=== PATIENT | female | born 1960 | race Two or more races ===

== ENCOUNTER 2020-04-01 08:28 | Outpatient (REF) | payer OTHER, SELFPAY ==
[2020-04-01 09:00] LABS: Basophils Percent Auto 0.2 % (0-2); Eosinophils Absolute Auto 0.1 X10*3/uL (0.0-0.4); Eosinophils Percent Auto 2.3 % (0-4); Hematocrit 38.3 % (37-47); Hemoglobin 12.5 g/dl (12.0-16.0); Imm Gran Abs Auto 0.01 X10*3/uL (0.00-0.03); Imm Gran Pct Auto 0.2 % (0.0-0.4); Lymphocytes Absolute Auto 2.1 X10*3/uL (1.2-4.9); Lymphocytes Percent Auto 39.2 % (20-40); MANUAL DIFF FLAG NO; Mean Corpuscular HGB Conc 32.6 g/dl (31.0-35.0); Mean Corpuscular Hemoglobin 29.8 pg (27.0-33.0); Mean Corpuscular Volume 91.4 fL (80-98); Monocytes Absolute Auto 0.3 X10*3/uL (0.1-1.2); Monocytes Percent Auto 6.4 % (2-11); Neutrophils Absolute Auto 2.8 X10*3/uL (2.0-8.3); Neutrophils Percent Auto 51.7 % (45-73); Platelet Count 240 X10*3/uL (160-400); Red Blood Count 4.19 X10*6/uL (4.20-5.50); Red Cell Distribution Width 12.2 % (11.0-16.0); White Blood Count 5.3 X10*3/uL (4.8-10.8)
[2020-04-01 09:30] LABS: Anion Gap 13 (12-20); Blood Urea Nitrogen 11 mg/dL (9-16); Calcium 9.1 mg/dL (8.4-10.2); Carbon Dioxide 26 mmol/L (22-29); Chloride 106 mmol/L (96-108); Cholesterol 164 mg/dL; Estimated Glomerular Filt Rate > 60; Glucose Fasting 101 mg/dL (60-99); HDL Cholesterol 54 mg/dL; LDL Cholesterol Calculated 92 mg/dl; Potassium 4.1 mmol/l (3.3-5.1); Sodium 141 mmol/L (135-145); Triglycerides 91 mg/dL
[2020-04-01 09:53] LABS: Thyroid Stimulating Hormone 3.11 mIU/mL (0.32-4.0)
== END 2020-04-01 08:29 | disposition home or self-care (01) ==
LOC: HO.LAB 08:28
PROVIDERS: Visit Provider Internal Medicine
DX: M81.0 Age-related osteoporosis without current pathological fracture (principal)
CPT/HCPCS: 36415; 80048; 80061; 84443; 85025

== ENCOUNTER 2020-04-04 08:12 | Outpatient (REF) | payer OTHER, SELFPAY ==
--- NOTE | 2020-04-04 08:15 | MM_ITS ---
EXAMINATION: MM SCREENING DIGITAL BREAST TOMOSYNTHESIS, BILATERAL CLINICAL INFORMATION: Screening. Asymptomatic. The lifetime risk of breast cancer based on the Tyrer-Cuzick Model is 4%. COMPARISON: Mammography: 04/03/2019; outside mammography 01/28/2018, 01/14/2017 ([facility]). TECHNIQUE: Digital breast tomosynthesis is performed in both the craniocaudal and mediolateral oblique views along with computer-aided detection (CAD). Synthesized 2D images are generated from the tomosynthesis. FINDINGS: There are scattered areas of fibroglandular density (ACR BI-RADS breast composition Category b). There are no significant masses, abnormal calcifications, or other abnormalities. Parenchymal pattern is similar to prior exams. MM/MM tomosynthesis screening BI IMPRESSION: No mammographic evidence of malignancy. ASSESSMENT: BI-RADS 1: Negative RECOMMENDATION: Routine annual mammography screening. This patient's information was entered into a reminder system with a target due date for their next mammogram.
== END 2020-04-04 08:13 | disposition home or self-care (01) ==
LOC: HO.MAMMO 08:12
PROVIDERS: PCP Internal Medicine; Visit Provider Internal Medicine
DX: Z12.31 Encounter for screening mammogram for malignant neoplasm of breast (principal)
CPT/HCPCS: 77063; 77067

== ENCOUNTER 2020-05-03 14:36 | Outpatient (REF) | payer OTHER, SELFPAY ==
[2020-05-04 03:37] LABS: CT PCR NOT DETECTED (Not Detect.); NG PCR NOT DETECTED (Not Detect.)
[2020-05-04 09:45] LABS: BV Int Neg Control Negative (Negative); BV Int Pos Control Positive (Positive)
== END 2020-05-03 14:37 | disposition home or self-care (01) ==
LOC: HO.LAB 14:36
PROVIDERS: Visit Provider Obstetrics & Gynecology
DX: Z01.419 Encounter for gynecological examination (general) (routine) without abnormal findings (principal); Z11.3 Encounter for screening for infections with a predominantly sexual mode of transmission
CPT/HCPCS: 87480; 87491; 87510; 87591; 87660

== ENCOUNTER 2020-05-18 14:18 | Outpatient (REF) | payer OTHER, SELFPAY | END 2020-05-18 14:19 | disposition home or self-care (01) | LOC: HO.LAB 14:18 | PROVIDERS: Visit Provider Obstetrics & Gynecology | DX: L91.8 Other hypertrophic disorders of the skin (principal) | CPT/HCPCS: 11200; 88304 ==

== ENCOUNTER → 2020-06-07 14:44 | Outpatient (BNVA) | payer OTHER, SELFPAY | PROVIDERS: PCP Internal Medicine; Visit Provider Nurse Practitioner Family | DX: Z76.89 Persons encountering health services in other specified circumstances (principal) ==

== ENCOUNTER 2020-06-08 09:18 | Outpatient (REF) | payer OTHER, SELFPAY ==
[2020-06-13 14:08] LABS: Vitamin D 25-OH, D2 <4 ng/mL; Vitamin D 25-OH, D3 18 ng/mL; Vitamin D 25-OH, Total 18 ng/mL (30-100)
== END 2020-06-08 09:19 | disposition home or self-care (01) ==
LOC: HO.LAB 09:18
PROVIDERS: PCP Internal Medicine; Visit Provider Nurse Practitioner Family
DX: M81.0 Age-related osteoporosis without current pathological fracture (principal); T45.8X5A Adverse effect of other primarily systemic and hematological agents, initial encounter
CPT/HCPCS: 82306

== ENCOUNTER → 2020-07-27 15:00 | Outpatient (BNVA) | payer OTHER, SELFPAY | PROVIDERS: PCP Internal Medicine; Visit Provider Nurse Practitioner Family ==

== ENCOUNTER → 2020-09-07 14:59 | Outpatient (BNVA) | payer OTHER, SELFPAY | PROVIDERS: PCP Internal Medicine; Visit Provider Nurse Practitioner Family ==

== ENCOUNTER 2020-09-16 17:17 | Outpatient (REF) | payer OTHER, SELFPAY ==
[2020-09-16 18:22] LABS: Hematocrit 39.9 % (37-47); Mean Corpuscular HGB Conc 32.6 g/dl (31.0-35.0); Mean Corpuscular Hemoglobin 29.5 pg (27.0-33.0); Mean Corpuscular Volume 90.7 fL (80-98); Mean Platelet Volume 11.5 fL (9.4-12.3); Platelet Count 270 X10*3/uL (160-400); Red Cell Distribution Width 12.3 % (11.0-16.0); White Blood Count 6.9 X10*3/uL (4.8-10.8)
[2020-09-16 18:42] LABS: Alanine Aminotransferase 20 U/L (0-31); Albumin Level 4.7 g/dL (3.5-5.0); Alkaline Phosphatase 105 U/L (39-117); Anion Gap 14 (12-20); Aspartate Amino Transferase 17 U/L (5-31); Bilirubin Total 0.2 mg/dL (0.0-1.0); Blood Urea Nitrogen 18 mg/dL (9-16); Calcium 9.8 mg/dL (8.4-10.2); Carbon Dioxide 29 mmol/L (22-29); Chloride 103 mmol/L (96-108); Estimated Glomerular Filt Rate 53; Glucose Random 135 mg/dL (60-115); Potassium 3.9 mmol/L (3.3-5.1); Sodium 142 mmol/L (135-145)
[2020-09-21 13:11] LABS: Vitamin D 25-OH, D2 <4 ng/mL; Vitamin D 25-OH, D3 67 ng/mL; Vitamin D 25-OH, Total 67 ng/mL (30-100)
== END 2020-09-16 17:18 | disposition home or self-care (01) ==
LOC: HO.LAB 17:17
PROVIDERS: PCP Internal Medicine; Visit Provider Nurse Practitioner Family
DX: K21.9 Gastro-esophageal reflux disease without esophagitis (principal); E55.9 Vitamin D deficiency, unspecified
CPT/HCPCS: 36415; 80053; 82306; 85027

== ENCOUNTER 2021-05-01 08:22 | Outpatient (REF) | payer OTHER, SELFPAY ==
[2021-05-01 10:04] LABS: Cholesterol 164 mg/dL; HDL Cholesterol 54 mg/dL; LDL Cholesterol Calculated 98 mg/dl; Triglycerides 64 mg/dL
[2021-05-05 14:06] LABS: Vitamin D 25-OH, D2 <4 ng/mL; Vitamin D 25-OH, D3 28 ng/mL; Vitamin D 25-OH, Total 28 ng/mL (30-100)
== END 2021-05-01 08:23 | disposition home or self-care (01) ==
LOC: HO.LAB 08:22
PROVIDERS: PCP Internal Medicine; Visit Provider Internal Medicine
DX: Z00.00 Encounter for general adult medical examination without abnormal findings (principal); M81.0 Age-related osteoporosis without current pathological fracture
CPT/HCPCS: 36415; 80061; 82306

== ENCOUNTER 2021-05-08 14:55 | Outpatient (REF) | payer OTHER, SELFPAY ==
[2021-05-09 03:00] LABS: CT PCR NOT DETECTED (Not Detect.); NG PCR NOT DETECTED (Not Detect.)
[2021-05-09 09:40] LABS: BV Int Neg Control Negative (Negative); BV Int Pos Control Positive (Positive)
[2021-05-11 16:31] LABS: HPV mRNA E6/E7 rflx Not Detected (Not Detected)
== END 2021-05-08 14:56 | disposition home or self-care (01) ==
LOC: HO.LAB 14:55
PROVIDERS: Visit Provider Advanced Practice Midwife
DX: Z01.419 Encounter for gynecological examination (general) (routine) without abnormal findings (principal); Z11.51 Encounter for screening for human papillomavirus (HPV); Z20.2 Contact with and (suspected) exposure to infections with a predominantly sexual mode of transmission
CPT/HCPCS: 87480; 87491; 87510; 87591; 87624; 87660; 88142

== ENCOUNTER 2021-06-08 12:16 | Outpatient (REF) | payer OTHER, SELFPAY ==
--- NOTE | ~2021-06-08 | MM_ITS ---
EXAMINATION: MM SCREENING DIGITAL BREAST TOMOSYNTHESIS, BILATERAL CLINICAL INFORMATION: Screening. Asymptomatic. The lifetime risk of breast cancer based on the Tyrer-Cuzick Model is 4%. COMPARISON: Mammography: 04/04/2020, 04/03/2019, 01/28/2018 TECHNIQUE: Digital breast tomosynthesis is performed in both the craniocaudal and mediolateral oblique views along with computer-aided detection (CAD). Synthesized 2D images are generated from the tomosynthesis. FINDINGS: There are scattered areas of fibroglandular density (ACR BI-RADS breast composition Category b). There are no significant masses, abnormal calcifications, or other abnormalities. Breast tissue composition borders on predominantly fatty. Background stromal and fibroglandular densities are stable. Skin contours are smooth. MM/MM tomosynthesis screening BI IMPRESSION: No mammographic evidence of malignancy. ASSESSMENT: BI-RADS 1: Negative RECOMMENDATION: Routine annual mammography screening. This patient's information was entered into a reminder system with a target due date for their next mammogram.
--- NOTE | ~2021-06-08 | MM_ITS ---
EXAMINATION: BONE DENSITOMETRY CLINICAL INDICATION: Age-related osteoporosis without current pathological fracture. COMPARISON: Baseline BD dated 04/03/2019. TECHNIQUE: Using a [employer] DXA System (software version: 13.1) manufactured by [employer], dual-energy x-ray absorptiometry was performed of the lumbar spine and left hip. The images are of good technical quality. Summary results are attached. FINDINGS: AP SPINE L1-L4: Current: BMD 0.910 g/cm2, Z-score -1.1, T-score -2.2, osteopenia, 3.0% decrease from baseline (<5% change is not significant). Baseline: BMD 0.938 g/cm2. LEFT FEMUR, NECK: Current: BMD 0.638 g/cm2, Z-score -1.7, T-score -2.9, osteoporosis. Baseline: BMD 0.761 g/cm2. LEFT FEMUR, TOTAL: Current: BMD 0.683 g/cm2, Z-score -1.7, T-score -2.6, osteoporosis, 16.9% decrease from baseline (<5% change is not significant). Baseline: BMD 0.822 g/cm2. IDENTIFIED RISK FACTORS: Early menopause, secondary osteoporosis, osteoporosis, hysterectomy. HISTORY OF FRACTURE: None listed. MEDICATIONS: Vitamin D, bisphosphonates. MM/XR DEXA axial skeleton IMPRESSION: 1. DIAGNOSIS: Osteoporosis based on the lowest T-score value of -2.9 in the femoral neck applying World Health Organization criteria. 2. 10-YEAR FRACTURE RISK PREDICTION, FRAX: According to the guidelines, FRAX calculation should only be performed on patients in the osteopenia bone density category. 3. Treatment Recommendations: NOF guidelines recommend consideration for treatment in postmenopausal women and men age 50 and older presenting with the following: -A hip or vertebral (clinical or morphometric) fracture. -T-score less than or equal to -2.5 at the femoral neck or spine after appropriate evaluation to exclude secondary causes. -Low bone mass at the hip or spine and a 10-year fracture probability by FRAX of greater than or equal to 3% for hip fracture or greater than or equal to 20% for major osteoporotic fracture based on the [place] adapted WHO algorithm. 4. Other Recommendations: All treatment decisions require clinical judgment and consideration of individual patient factors, including patient preferences, comorbidities, previous drug use, risk factors not captured in the FRAX model (e.g. frailty, falls, vitamin D deficiency, increased bone turnover, interval significant decline in bone density) and possible under or overestimation of fracture risk by FRAX. Additional medical evaluation for secondary cause of low bone mineral density may be appropriate. FUTURE SCAN RECOMMENDATION: People with diagnosed cases of osteoporosis or at high risk for fracture should have regular bone mineral density tests. For patients eligible for Medicare, routine testing is allowed once every 2 years. The testing frequency can be increased to one year for patients who have rapidly progressing disease, those who are receiving or discontinuing medical therapy to restore bone mass, or have additional risk factors.
== END 2021-06-08 12:17 | disposition home or self-care (01) ==
LOC: HO.MAMMO 12:16
PROVIDERS: Visit Provider Internal Medicine
DX: Z12.31 Encounter for screening mammogram for malignant neoplasm of breast (principal); Z13.820 Encounter for screening for osteoporosis; M81.0 Age-related osteoporosis without current pathological fracture; Z78.0 Asymptomatic menopausal state; Z79.899 Other long term (current) drug therapy
CPT/HCPCS: 77063; 77067; 77080

== ENCOUNTER → 2021-10-18 14:01 | Outpatient (BNVA) | payer OTHER, SELFPAY | PROVIDERS: PCP Internal Medicine; Referring Provider Internal Medicine; Visit Provider Nurse Practitioner Family | DX: Z12.11 Encounter for screening for malignant neoplasm of colon (principal) ==

== ENCOUNTER 2021-12-29 08:33 | Outpatient (REF) | payer SELFPAY ==
--- NOTE | 2021-12-29 13:36 | MHC.AU.CER ---
Cerumen Removal- Binaural Date of Visit: 12/29/21 Medical Conditions: No Conditions of Concern for Cerumen Removal Medications: No Medications of Concern for Cerumen Removal Procedure: Right Ear: Prior to Removal: Moderate Cerumen Present Outcome of Procedure: Cerumen was easily removed. All cerumen was removed. Left Ear: Prior to Removal: Moderate Cerumen Present Outcome of Procedure: Cerumen was easily removed. All cerumen was removed. Recommendations: Patient was referred to our clinic for cerumen removal by her PCP. She had been using Debrox drops prior to today's appointment. Cerumen was removed without incident. She plans to schedule a hearing test at our clinic in the near future. She had a hearing test several years ago and was told she was starting to develop hearing loss. She would like to monitor her hearing to see if it has changed. Diagnosis Code(s): Primary Diagnosis: H61.23 Impacted Cerumen, Bilateral Signature: Provider: Melanie Johnston, CCC-A
== END 2021-12-29 08:34 | disposition home or self-care (01) ==
LOC: HO.HAP 08:33
PROVIDERS: Visit Provider Internal Medicine
DX: Z46.1 Encounter for fitting and adjustment of hearing aid (principal); H61.23 Impacted cerumen, bilateral
CPT/HCPCS: 92700

== ENCOUNTER 2022-02-05 08:24 | Day surgery (SDC) | payer OTHER, SELFPAY ==
[2022-01-30 10:59] VITALS: BMI 27.0
[2022-02-05 08:35] VITALS: BP 132/76; PULSE 88; RESP 17; TEMP 36.1; O2SAT 98
--- NOTE | 2022-02-05 09:02 | MHC.SHP ---
Pre-Procedural Eval Section A Date of Service: 02/05/22 Section B Chief Complaint: Diaphragmatic hernia,reflux disease,screening Relevant Family History (Specify if Yes): No Relevant Social History: None Present Medications: see Short Stay Collaborative assessment Medical History: Significant History (GERD) History of Previous Operations: Relevant previous surgery/procedure and date(s) (History of section History of colonoscopy History of hysterectomy Hx of endoscopy) Allergies: Allergies Allergy/AdvReac Type Severity Reaction Status Date / Time acetaminophen [Percocet] Allergy Unknown nightmares Verified 12/06/21 10:40 oxycodone [Percocet] Allergy Unknown nightmares Verified 12/06/21 10:40 Review of Systems Sugical H&P ROS: Negative: Constitution, Cardiovascular, Respiratory, Neurological, Psychiatric, Hem-Onc, Allergic/Immunologic, Gastrointestinal, Genitourinary, Musculoskeletal, Integumentary, Endocrine and Eyes/Ears/Nose/Throat Exam Surgical H&P Exam: Normal: HEENT, Normal: Heart, Normal: Lungs, Normal: Extremities, Normal: Abdomen, Normal: Skin and Normal: Neurological Plan Diagnosis/Plan: Unchanged I have reviewed the history and physical and performed a pertinent physical examination on my patient. No changes have occurred unless specified.
[2022-02-05] MEDS: Lactated Ringers 1,000 ML 50 ML IVCONT (09:07)
--- NOTE | 2022-02-05 09:40 | P.CONAN_ITS ---
[facility] Active Problems Active Problems: All Active Problems (Updated 12/06/21 @ 11:15 by Titus Cardenas MD) Impacted cerumen of right ear (Acute) Cervical cancer screening (Acute) Family history of diabetes mellitus (DM) (Acute) Elevated fasting glucose (Acute) Women's annual routine gynecological examination (Acute) Colon polyps (Acute) Chronic GERD (Acute) Physical exam (Acute) Hiatal hernia (Acute) Skin lesion (Acute) Osteoporosis (Acute) Past Medical History Medical History Gastroesophageal reflux disease Family History Family History Father Hx of type 1 diabetes mellitus Hx of hiatal hernia Hx of congestive heart failure Mother HTN (hypertension) Family history of problems with anesthesia: No Surgical History Surgical History History of section History of colonoscopy History of hysterectomy Hx of endoscopy History of Problems with Anesthesia: No Social History Social History Household Members: Spouse Housing: House Alcohol intake: current Alcohol intake frequency: does not drink Patient Tobacco Use Status: Never used Tobacco e-Cigarette/Vaping Use: Never Used Second Hand Smoke Exposure: No Advance Directives: No Advance Directives Information Provided: Yes Nutrition Risks: No Nutritional Risk service: No Current occupational status: employed Sexual orientation: Straight/Heterosexual Gender identity: Female Cognitive needs: No Hearing needs: No Vision needs: Yes Meds Allergies Allergy/AdvReac Type Severity Reaction Status Date / Time acetaminophen [Percocet] Allergy Unknown nightmares Verified 12/06/21 10:40 oxycodone [Percocet] Allergy Unknown nightmares Verified 12/06/21 10:40 Active Medications: Current Medications Lactated Ringer's (Lr) 1,000 mls @ 50 mls/hr IVCONT .Q20H BRIANNA Last Admin: 02/05/22 09:07 Dose: 50 mls/hr Exam Exam Date and Time: February 05, 2022 0940 Height,Weight and Vital Signs: Height 5 ft 1 in Weight 64.864 kg Last Vital Signs Temp 97 F 02/05/22 08:35 Pulse 88 02/05/22 08:35 Resp 17 02/05/22 08:35 BP 132/76 02/05/22 08:35 Pulse Ox 98 02/05/22 08:35 O2 Del Method 02/05/22 08:35 Airway Mallampati Class: II TM Dist: >3cm Neck ROM: Full Assessment and Plan Assessment Anesthesia Assessment: Anesthesia Plan Discussed and Chart Reviewed Final Anesthetic Review Family History of Problems with Anesthesia: No History of Problems with Anesthesia: No NPO: Yes ASA Class: II Final Preanesthetic Review: No Changes in Pt Med Stat, Meds/Allgs Chart Reviewed, Consent Obtained/Reviewed and Anes Risks/Benef Reviewed Patient Risk: Low Procedure Risk: Low Anesthetic Plan Anesthetic Plan: MAC: Disposition: Standard PACU
--- NOTE | 2022-02-05 09:50 | W.PM.OPN ---
Operative Note Operative Note Date of Service: 02/05/22 Narrative: Operative Information Procedure Description: EGD, Colonoscopy Indication: GERD, screening colonoscopy Anesthesia: MAC FLEXIBLE TRANSORAL UPPER GASTROINTESTINAL ENDOSCOPY AND COLONOSCOPY PROCEDURE NOTE UPPER ENDOSCOPY Consent: Indications for the procedure and potential complications of bleeding, perforation, reaction to medications and missed diagnosis were discussed with the patient and informed consent was obtained. Instrument: Olympus GIF H 190 J mid size upper endoscope Monitoring: Vital signs and clinical assessment, continuous EKG monitoring, Pulse oximetry, Carbon Dioxide monitoring and blood pressure monitoring were done throughout the procedure. Procedure: The patient was placed in the left lateral decubitis position and pre-procedure medications were administered and a bite block was placed. The endoscope was inserted into the mouth and advanced under direct vision to the third part of duodenum. A careful inspection was made as the upper endoscope was withdrawn including a retroflexed examination of the proximal stomach; Findings and interventions are described below. Findings: Larynx:normal Esophagus: GE junction at 34 cm, diaphragm hiatus at 37 cm, schatzki ring, severe bogginess and erythema with maceration of mucosa with erosions consistent with severe reflux esophagitis. There was a polypoid lesion 7-9 mm removed with cold snare with bx taken from GEJ and lower esophagus Stomach:10 mm sessile polyp in proximal stomach body removed with cold snare with x 2 clips placed for hemostasis. Biopsies were also obtained. Grade 2 flap valve on retroflexed examination of the cardia. Duodenum: Normal bulb and descending duodenum, bx taken Intervention: Biopsies as noted above, cold snare polypectomy COLONOSCOPY Instrument: Olympus variable stiffness pediatric scope 190L Colonoscopy Monitoring: Vital signs and clinical assessment, continuous EKG monitoring, Pulse oximetry, Carbon Dioxide monitoring and blood pressure monitoring were done throughout the procedure. Colon withdrawal time was 6 minutes. Procedure: The patient was placed in the left lateral decubitis position and pre-procedure medications were administered. After a digital rectal examination of the ano-rectum, the video colonoscope was inserted into the rectum and advanced through the colon to the cecum/TI. The colonoscope was slowly withdrawn in a retrograde panoramic fashion and the colon mucosa was carefully examined including a retroflexed view of the rectum. Findings and interventions are described below. Procedure Difficulty: moderate Findings: Redundant colon noted. Terminal Ileum-normal Cecum:normal Ascending Colon: normal Transverse Colon -normal Descending Colon:normal Sigmoid Colon: normal Rectum: Retroflexion with small internal hemorrhoids, grade I Anorectum - normal Colon preparation: [place] Bowel Preparation Scale Right colon; 2 Transverse colon: 3 Left colon; 3 (0 = Unprepared colon segment with mucosa not seen due to solid stool that cannot be cleared. 1 = Portion of mucosa of the colon segment seen, but other areas of the colon segment not well seen due to staining, residual stool and/or opaque liquid. 2 = Minor amount of residual staining, small fragments of stool and/or opaque liquid, but mucosa of colon segment seen well. 3 = Entire mucosa of colon segment seen well with no residual staining, small fragments of stool or opaque liquid) Impression and Post Procedure Diagnosis: Endoscopy Findings: severe esophagitis stomach polyp schatzki ring Colonoscopy Findings: internal hemorrhoids Plan: Await Pathology results Repeat Colonoscopy in 10 years or earlier if clinically indicated High fiber diet leaflet avoid straining at stool, epsom salts and sitz bath, anusol supps or cream consider going back to PPI instead of H2 elvia reflux precautions Above findings were reviewed with the patient and relevant handouts were provided if indicated.
[2022-02-05 10:34] VITALS: BP 94/60; PULSE 80; RESP 15; TEMP 36.3; O2SAT 99
[2022-02-05 10:49] VITALS: BP 106/73; PULSE 81; RESP 18; O2SAT 99
[2022-02-05 11:00] VITALS: BP 118/77; PULSE 71; RESP 18; TEMP 36.3; O2SAT 99
== END 2022-02-05 11:55 | disposition home or self-care (01) ==
PROVIDERS: PCP Internal Medicine; Visit Provider Internal Medicine Gastroenterology
PROC: (CPT 45378; principal; 2022-02-05 10:40)
DX: Z12.11 Encounter for screening for malignant neoplasm of colon (principal); Z86.010 Personal history of colon polyps; K64.0 First degree hemorrhoids; Q43.8 Other specified congenital malformations of intestine; K21.9 Gastro-esophageal reflux disease without esophagitis; K31.7 Polyp of stomach and duodenum; K22.2 Esophageal obstruction; K22.82 Esophagogastric junction polyp; K22.81 Esophageal polyp; K20.80 Other esophagitis without bleeding; K44.9 Diaphragmatic hernia without obstruction or gangrene; E55.9 Vitamin D deficiency, unspecified; R73.01 Impaired fasting glucose; M81.0 Age-related osteoporosis without current pathological fracture; Z88.8 Allergy status to other drugs, medicaments and biological substances; Z79.899 Other long term (current) drug therapy
CPT/HCPCS: 45378; 43251; 43239; 88305; 88342

== ENCOUNTER → 2022-02-15 08:30 | Outpatient (BNVA) | payer OTHER, SELFPAY | PROVIDERS: PCP Internal Medicine; Visit Provider Internal Medicine Gastroenterology | DX: Z11.2 Encounter for screening for other bacterial diseases (principal) ==

== ENCOUNTER 2022-02-15 17:33 | Outpatient (REF) | payer OTHER, SELFPAY ==
[2022-02-18 11:28] LABS: H Pylori Breath Test Negative (Negative)
== END 2022-02-15 17:34 | disposition home or self-care (01) ==
LOC: HO.LNP 17:33
PROVIDERS: Visit Provider Internal Medicine Gastroenterology
DX: Z11.2 Encounter for screening for other bacterial diseases (principal)
CPT/HCPCS: 83013

== ENCOUNTER 2022-02-19 11:13 | Outpatient (REF) | payer OTHER, SELFPAY ==
[2022-02-19 13:18] LABS: Folate 10.6 ng/mL (> or = 4.0); Vitamin B12 353 pg/mL (200-900)
[2022-02-21 14:37] LABS: Immunoglobulin A 249 mg/dL (47-310)
[2022-02-21 21:07] LABS: Transglutaminase Ab IgG 1.6 U/mL; Transglutaminase IgA <1.0 U/mL
[2022-02-23 12:06] LABS: Vitamin D 25-OH, D2 <4 ng/mL; Vitamin D 25-OH, D3 39 ng/mL; Vitamin D 25-OH, Total 39 ng/mL (30-100)
== END 2022-02-19 11:14 | disposition home or self-care (01) ==
LOC: HO.LAB 11:13
PROVIDERS: PCP Internal Medicine; Visit Provider Nurse Practitioner Family
DX: R10.9 Unspecified abdominal pain (principal); R19.7 Diarrhea, unspecified; K58.9 Irritable bowel syndrome, unspecified; E55.9 Vitamin D deficiency, unspecified
CPT/HCPCS: 36415; 82306; 82607; 82746; 82784; 86003; 86364

== ENCOUNTER 2022-02-22 09:44 | Outpatient (REF) | payer OTHER, SELFPAY ==
[2022-03-01 19:52] LABS: Pancreatic Elastase-1 >500 mcg/g
== END 2022-02-22 09:45 | disposition home or self-care (01) ==
LOC: HO.LNP 09:44
PROVIDERS: Visit Provider Nurse Practitioner Family
DX: R10.9 Unspecified abdominal pain (principal)
CPT/HCPCS: 82656

== ENCOUNTER 2022-05-17 07:14 | Outpatient (REF) | payer OTHER, SELFPAY ==
[2022-05-17 07:21] LABS: MANUAL DIFF FLAG NO
[2022-05-17 07:57] LABS: Basophils Percent Auto 0.4 % (0-2); Eosinophils Absolute Auto 0.5 X10*3/uL (0.0-0.4); Eosinophils Percent Auto 8.2 % (0-4); Hematocrit 39.5 % (37.0-47.0); Imm Gran Abs Auto 0.01 X10*3/uL (0.00-0.03); Imm Gran Pct Auto 0.2 % (0.0-0.4); Lymphocytes Absolute Auto 2.3 X10*3/uL (1.2-4.9); Lymphocytes Percent Auto 40.9 % (20-40); Mean Corpuscular HGB Conc 32.9 g/dl (31.0-35.0); Mean Corpuscular Hemoglobin 29.7 pg (27.0-33.0); Mean Corpuscular Volume 90.2 fL (80.0-98.0); Mean Platelet Volume 11.2 fL (9.4-12.3); Monocytes Absolute Auto 0.4 X10*3/uL (0.1-1.2); Monocytes Percent Auto 6.9 % (2-11); Neutrophils Absolute Auto 2.4 x10*3/uL (2.0-8.3); Neutrophils Percent Auto 43.4 % (45-73); Platelet Count 234 X10*3/uL (160-400); Red Blood Count 4.38 X10*6/uL (4.20-5.50); Red Cell Distribution Width 12.3 % (11.0-16.0); White Blood Count 5.5 X10*3/uL (4.8-10.8)
[2022-05-17 08:42] LABS: Alanine Aminotransferase 31 U/L (0-31); Albumin Level 4.6 g/dL (3.5-5.0); Alkaline Phosphatase 107 U/L (39-117); Anion Gap 13 (12-20); Aspartate Amino Transferase 19 U/L (5-31); Bilirubin Total 0.5 mg/dL (0.0-1.0); Blood Urea Nitrogen 12 mg/dL (9-16); Calcium 9.6 mg/dL (8.4-10.2); Carbon Dioxide 26 mmol/L (22-29); Chloride 106 mmol/L (96-108); Cholesterol 169 mg/dL; Estimated Glomerular Filt Rate > 60; Glucose Fasting 123 mg/dL (60-99); HDL Cholesterol 49 mg/dL; LDL Cholesterol Calculated 104 mg/dl; Magnesium 2.2 mg/dL (1.6-2.6); Potassium 4.1 mmol/L (3.3-5.1); Sodium 141 mmol/L (135-145); Thyroid Stimulating Hormone 3.29 uIU/mL (0.32-4.0); Total Protein 7.2 g/dL (6.5-8.0); Triglycerides 83 mg/dL; Vitamin D 25-OH Total 42.5 ng/mL (>30)
== END 2022-05-17 07:15 | disposition home or self-care (01) ==
LOC: HO.LAB 07:14
PROVIDERS: PCP Internal Medicine; Visit Provider Internal Medicine
DX: Z13.0 Encounter for screening for diseases of the blood and blood-forming organs and certain disorders involving the immune mechanism (principal); Z13.9 Encounter for screening, unspecified; E03.9 Hypothyroidism, unspecified; E78.5 Hyperlipidemia, unspecified; I10 Essential (primary) hypertension; K21.9 Gastro-esophageal reflux disease without esophagitis
CPT/HCPCS: 36415; 80053; 80061; 82306; 83735; 84443; 85025

== ENCOUNTER 2022-07-26 12:48 | Outpatient (REF) | payer OTHER, SELFPAY ==
--- NOTE | ~2022-07-26 | MM_ITS ---
EXAMINATION: MM SCREENING DIGITAL BREAST TOMOSYNTHESIS, BILATERAL CLINICAL INFORMATION: Screening. Asymptomatic. The lifetime risk of breast cancer based on the Tyrer-Cuzick Model is 4%. COMPARISON: Mammography: 06/08/2021, 04/04/2020, 04/03/2019 TECHNIQUE: Digital breast tomosynthesis is performed in both the craniocaudal and mediolateral oblique views along with computer-aided detection (CAD). Synthesized 2D images are generated from the tomosynthesis. FINDINGS: There are scattered areas of fibroglandular density (ACR BI-RADS breast composition Category b). There are no significant masses, abnormal calcifications, or other abnormalities. No architectural abnormality or developing density or significant change from prior studies. Breast tissue composition borders on predominantly fatty. Background stromal markings are normal. MM/MM tomosynthesis screening BI IMPRESSION: No mammographic evidence of malignancy. ASSESSMENT: BI-RADS 1: Negative RECOMMENDATION: Routine annual mammography screening. This patient's information was entered into a reminder system with a target due date for their next mammogram.
== END 2022-07-26 12:49 | disposition home or self-care (01) ==
LOC: HO.MAMMO 12:48
PROVIDERS: PCP Internal Medicine; Visit Provider Internal Medicine
DX: Z12.31 Encounter for screening mammogram for malignant neoplasm of breast (principal)
CPT/HCPCS: 77063; 77067

== ENCOUNTER 2022-08-30 06:46 | Day surgery (SDC) | payer OTHER, SELFPAY ==
[2022-08-24 13:55] VITALS: BMI 27.0
--- NOTE | 2022-08-29 09:45 | HO.ANESPROP2 ---
Documented by User: Carmella Rodrigeuz NP 08/29/22 09:46 HPI - Anesthesia Eval Consult details Narrative: 62yo F for Upper Endoscopy s/p EGD and [place] 01/2022 with MAC PMFSH Active Problems Active Problems: All Active Problems (Updated 12/06/21 @ 11:15 by Titus Cardenas MD) Osteoporosis (Acute) Skin lesion (Acute) Hiatal hernia (Acute) Physical exam (Acute) Women's annual routine gynecological examination (Acute) Cervical cancer screening (Acute) Impacted cerumen of right ear (Acute) Family history of diabetes mellitus (DM) (Acute) Elevated fasting glucose (Acute) Colon polyps (Acute) Chronic GERD (Acute) Past Medical History Medical History Chronic GERD Colon polyps Elevated fasting glucose Family history of diabetes mellitus (DM) Gastroesophageal reflux disease Family History Family History Father Hx of type 1 diabetes mellitus Hx of hiatal hernia Hx of congestive heart failure Mother HTN (hypertension) Family history of problems with anesthesia: No Surgical History Surgical History (Updated 08/24/22 @ 13:51 by Raya Gary RN) History of section History of colonoscopy History of hysterectomy Hx of endoscopy History of Problems with Anesthesia: No Social History Social History Household Members: Spouse Housing: House Alcohol intake: current Alcohol intake frequency: does not drink Patient Tobacco Use Status: Former Tobacco user e-Cigarette/Vaping Use: Never Used Second Hand Smoke Exposure: No Use of substances other than those prescribed or required for medical reasons: No Are you DNR?: No Advance Directives: No Advance Directives Information Provided: Yes Recently lost weight without trying: No Nutrition Risks: No Nutritional Risk service: No Current occupational status: employed Sexual orientation: Straight/Heterosexual Gender identity: Female Cognitive needs: No Hearing needs: No Vision needs: Yes Meds Allergies Allergy/AdvReac Type Severity Reaction Status Date / Time oxycodone [Percocet] Allergy Intermediate nightmares Verified 08/24/22 13:50 Exam Exam Date and Time: August 29, 2022 0945 Height,Weight and Vital Signs: Height 5 ft 1.5 in Weight 65.998 kg Assessment and Plan Assessment Anesthesia Assessment: Chart Reviewed Final Anesthetic Review Family History of Problems with Anesthesia: No History of Problems with Anesthesia: No Documented by User: Porfirio Mckee MD 08/30/22 08:15 PMFSH Past Medical History Medical History Chronic GERD Colon polyps Elevated fasting glucose Family history of diabetes mellitus (DM) Gastroesophageal reflux disease Family History Family History Father Hx of type 1 diabetes mellitus Hx of hiatal hernia Hx of congestive heart failure Mother HTN (hypertension) Surgical History Surgical History (Updated 08/24/22 @ 13:51 by Raya Gary RN) History of section History of colonoscopy History of hysterectomy Hx of endoscopy Social History Social History Household Members: Spouse Housing: House Alcohol intake: current Alcohol intake frequency: does not drink Patient Tobacco Use Status: Former Tobacco user e-Cigarette/Vaping Use: Never Used Second Hand Smoke Exposure: No Use of substances other than those prescribed or required for medical reasons: No Are you DNR?: No Advance Directives: No Advance Directives Information Provided: Yes Recently lost weight without trying: No Nutrition Risks: No Nutritional Risk service: No Current occupational status: employed Sexual orientation: Straight/Heterosexual Gender identity: Female Cognitive needs: No Hearing needs: No Vision needs: Yes Meds Allergies Allergy/AdvReac Type Severity Reaction Status Date / Time oxycodone [Percocet] Allergy Intermediate nightmares Verified 08/24/22 13:50 Exam Airway Mallampati Class: II TM Dist: >3cm Neck ROM: Full Heart: ok Lungs: ok Assessment and Plan Assessment Anesthesia Assessment: Anesthesia Plan Discussed Final Anesthetic Review NPO: Yes ASA Class: II Final Preanesthetic Review: No Changes in Pt Med Stat, Meds/Allgs Chart Reviewed, Consent Obtained/Reviewed and Anes Risks/Benef Reviewed Patient Risk: Low Procedure Risk: Intermediate Anesthetic Plan Anesthetic Plan: MAC: and Agree w/ Assess. and Plan Disposition: Standard PACU
[2022-08-30 07:15] VITALS: BMI 26.0
[2022-08-30 07:23] VITALS: BP 147/83; PULSE 90; RESP 16; TEMP 36.8; O2SAT 98
[2022-08-30] MEDS: Lactated Ringers 1,000 ML 100 ML IVCONT (07:36)
--- NOTE | 2022-08-30 08:07 | MHC.SHP ---
Pre-Procedural Eval Section A Date of Service: 08/30/22 Section B Chief Complaint: Gastro-esophageal reflux disease Relevant Family History (Specify if Yes): No Relevant Social History: None Present Medications: see Short Stay Collaborative assessment Medical History: Significant History (Chronic GERD Colon polyps Elevated fasting glucose Family history of diabetes mellitus (DM) Gastroesophageal reflux disease) History of Previous Operations: Relevant previous surgery/procedure and date(s) (History of section History of colonoscopy History of hysterectomy Hx of endoscopy) Allergies: Allergies Allergy/AdvReac Type Severity Reaction Status Date / Time oxycodone [Percocet] Allergy Intermediate nightmares Verified 08/24/22 13:50 Review of Systems Sugical H&P ROS: Negative: Constitution, Cardiovascular, Respiratory, Neurological, Psychiatric, Hem-Onc, Allergic/Immunologic, Gastrointestinal, Genitourinary, Musculoskeletal, Integumentary, Endocrine and Eyes/Ears/Nose/Throat Exam Surgical H&P Exam: Normal: HEENT, Normal: Heart, Normal: Lungs, Normal: Extremities, Normal: Abdomen, Normal: Skin and Normal: Neurological Plan Diagnosis/Plan: Unchanged I have reviewed the history and physical and performed a pertinent physical examination on my patient. No changes have occurred unless specified. Time Spent With Patient Time: Total time managing care of this patient today ____ minutes.
--- NOTE | 2022-08-30 08:08 | W.PM.OPN ---
Operative Note Operative Note Date of Service: 08/30/22 Narrative: Procedure Description: EGD Indication: GERD Anesthesia: MAC FLEXIBLE TRANSORAL UPPER GASTROINTESTINAL ENDOSCOPY UPPER ENDOSCOPY Consent: Indications for the procedure and potential complications of bleeding, perforation, reaction to medications and missed diagnosis were discussed with the patient and informed consent was obtained. Instrument: Olympus GIF H 190 J mid size upper endoscope Monitoring: Vital signs and clinical assessment, continuous EKG monitoring, Pulse oximetry, Carbon Dioxide monitoring and blood pressure monitoring were done throughout the procedure. Procedure: The patient was placed in the left lateral decubitis position and pre-procedure medications were administered and a bite block was placed. The endoscope was inserted into the mouth and advanced under direct vision to the third part of duodenum. A careful inspection was made as the upper endoscope was withdrawn including a retroflexed examination of the proximal stomach; Findings and interventions are described below. Findings: Larynx:normal Esophagus: GE junction at 34? cm, diaphragm hiatus at 37 cm consistent with 3 cm sliding hiatal hernia, non obstructive schatzki ring, with mild esophagitis noted, bx taken from GEJ, distal and proximal esophagus. Stomach:Mild erythema, bx taken also 2 clips noted on top of a previously removed polypoid lesion which was slightly heaped up. The clips were removed and the area removed for sampling using a hot snare and retrieved with a net. Grade 2 flap valve on retroflexed examination of the cardia. Duodenum: Normal bulb and descending duodenum, Intervention: Biopsies as noted above, hot snare polypectomy and removal of clips Impression/Findings: mild esophagitis--much improved compared to before mild gastritis hiatal hernia retained clips PLAN: await pathology can stop the night time famotidine if desired and see show she does
[2022-08-30 08:50] VITALS: BP 97/52; PULSE 86; RESP 14; TEMP 36.7; O2SAT 96
[2022-08-30 09:05] VITALS: BP 123/76; PULSE 78; RESP 16; TEMP 37.3; O2SAT 98
== END 2022-08-30 09:53 | disposition home or self-care (01) ==
PROVIDERS: PCP Internal Medicine; Visit Provider Internal Medicine Gastroenterology
PROC: 0DJ08ZZ Inspection of Upper Intestinal Tract, Via Natural or Artificial Opening Endoscopic (ICD-10-PCS; CPT 43235; principal; 2022-08-30 08:10)
DX: K21.9 Gastro-esophageal reflux disease without esophagitis (principal); K20.80 Other esophagitis without bleeding; K44.9 Diaphragmatic hernia without obstruction or gangrene; K29.50 Unspecified chronic gastritis without bleeding; K31.7 Polyp of stomach and duodenum; Z79.899 Other long term (current) drug therapy; Z88.8 Allergy status to other drugs, medicaments and biological substances
CPT/HCPCS: 43251; 43239; 88305; 88342; J3010

== ENCOUNTER → 2022-09-14 08:49 | Outpatient (BNVA) | payer OTHER, SELFPAY | PROVIDERS: PCP Internal Medicine; Visit Provider Nurse Practitioner Family | DX: Z13.89 Encounter for screening for other disorder (principal) ==

== ENCOUNTER 2023-01-18 08:59 | Outpatient (AMB) | payer BC, SELFPAY ==
[2023-01-18 09:04] VITALS: BP 122/64; BMI 26.1
--- NOTE | 2023-01-18 09:04 | A.OFFVIS_ITS ---
Intake Vital Signs 01/18/23 09:04 Height 5 ft 1.5 in Weight 140 lb 10.479 oz BMI 26.1 BP 122/64 Blood Pressure Location Lt brachial Position Sitting Intake Visit Reasons: 4 month follow up Intake Note: Caitlin presents in office as a est.patient for a 4month f/u for Chronic GERD PT CC: pt reports having no concerns pt denies any other GI Issues Block Trader Required: No Accompanied by: Self / Same As Patient Allergies oxycodone [Percocet] Allergy (Intermediate, Verified 01/18/23 09:04) nightmares HPI 4 month follow up HPI Details LAST VISIT: Chronic GERD Patient changed diet. Continue to avoid dietary triggers and late night snacking. Staying upright for minimal 3 hours after meals discussed with patient. Will give patient script for pantoprazole 20 mg and she will try to take that instead of 40 mg, however if she will have symptoms of acid reflux or dyspepsia she can continue taking 40 mg of pantoprazole. Patient will call the office if she is unable to take 20 mg daily. I will see patient in 4 months sooner on as needed basis. Patient is agreeable to this plan and verbalizes understanding of instructions. She was given the opportunity to ask questions and all questions answered. ? Thank you for allowing me to participate in her care Hiatal hernia Plan Medications New pantoprazole 20 mg PO DAILY 90 tabs 1RF TODAY'S VISIT Patient is here today for follow-up. Patient states that she started taking pantoprazole 20 mg a and was doing very well. Patient states that she stopped taking it for 2-3 days and started to have acid reflux so she restart taking it again. Due to her new health insurance patient is unable to get pantoprazole. Tried taking her old omeprazole, however she states that it was not helpful. Patient otherwise reports to be feeling well. Wants to get off the PPI slowly. Patient denies dyspepsia, dysphagia or odynophagia. Patient denies any melena, hematochezia, unintentional weight loss or ribbon like stools. Patient otherwise feels well. 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 Will try to introduce food back slowly. [facility] Medical History Chronic GERD Colon polyps Elevated fasting glucose Family history of diabetes mellitus (DM) Gastroesophageal reflux disease Surgical History History of section History of colonoscopy History of esophagogastroduodenoscopy (EGD) History of hysterectomy Hx of endoscopy Family History Father Hx of type 1 diabetes mellitus Hx of hiatal hernia Hx of congestive heart failure Mother HTN (hypertension) Social History Household Members: Spouse Housing: House Alcohol intake: current Alcohol intake frequency: does not drink Patient Tobacco Use Status: Former Tobacco user e-Cigarette/Vaping Use: Never Used Second Hand Smoke Exposure: No service: No Current occupational status: employed Sexual orientation: Straight/Heterosexual Gender identity: Female Cognitive needs: No Hearing needs: No Vision needs: Yes Review of Systems Const Denies weight gain and Denies weight loss ENT Reports no additional complaints, Denies dysphagia and Denies odynophagia Card Reports no additional complaints Resp Reports no additional complaints GI Denies abdominal pain, Denies belching, Denies melena, Denies bloating, Denies change in bowel habits, Denies dysphagia, Denies excessive flatus, Denies dyspepsia, Denies heartburn, Denies diarrhea, Denies loose stools, Denies nausea, Denies odynophagia and Denies vomiting Reports no additional complaints Musc Reports no additional complaints Neuro Reports no additional complaints Psych Reports no additional complaints Endo Reports no additional complaints Physical Exam Vital Signs: BMI result Body Mass Index 26.1 Const General: healthy appearing, no acute distress and well developed Nutritional Appearance: well nourished Orientation/consciousness: patient oriented x3 HEENT Head: Yes normal to inspection, Yes normocephalic and Yes atraumatic Face and sinus: Yes normal facial exam Mouth: Normal oral and palatal mucosa present Throat: Yes posterior oropharynx normal, Yes tonsils normal and Yes uvula midline Eyes General: appearance normal, both eyes and all related structures Neck Neck: Yes normal visual inspection, Yes full ROM and Yes trachea midline Thyroid: Thyroid normal Resp Effort & Inspection: normal respiratory effort, able to speak in complete sentences, no tracheal deviation and symmetric chest movement Auscultation: clear to auscultation bilaterally Cardio Rate: regular rate Heart sounds: S1 normal heart sound present and S2 normal heart sound present GI Inspection: Yes normal to inspection and No distended Palpation (GI): Soft to palpation, not firm, nontender and No hepatosplenomegaly present Auscultation: normal bowel sounds General: Yes no CVA tenderness Back/Spine/Pelvis Back: no CVA tenderness Skin General skin exam: elasticity normal, turgor normal and dry skin Neuro General: patient oriented x3 Psych Appearance: grossly normal Mental Status: mental status grossly normal Speech and movement: Normal speech and movement present Assessment & Plan Assessment & Plan (1) Chronic GERD: Code(s): K21.9 - Gastro-esophageal reflux disease without esophagitis Plan: Continue taking low-dose PPI. Patient can continue that for 2-3 weeks and then slowly start weaning herself of every other day then twice a week. Patient can try Pepcid in between to help her on as needed basis. Continue avoiding dietary triggers and late night snacking. Staying upright for minimum 3 hours after meals discussed with patient. Patient will try to introduce food slowly. Recommended to do it once a week different item. I will see patient in 6 months, sooner on as needed basis. Patient is agreeable to this plan and verbalizes understanding of instructions. She was given the opportunity to ask questions and all questions answered. Thank you for allowing me to participate in her care Medications: Refilled pantoprazole 20 mg PO DAILY 90 tabs 1RF famotidine (Pepcid) 20 mg PO BEDTIME 90 tabs 3RF K21.9 - Gastro-esophageal reflux disease without esophagitis famotidine (Pepcid) 20 mg PO BEDTIME 90 tabs 3RF K21.9 - Gastro-esophageal reflux disease without esophagitis pantoprazole 20 mg PO DAILY 90 tabs 1RF Discontinued pantoprazole take one tablet half an hour before breakfast Discontinued Reason: Doctor's Order 40 mg PO DAILY 90 tabs 2RF K21.9 - Gastro-esophageal reflux disease without esophagitis Coding Level of Care Code Est Pt Level 3 (17910) Diagnoses Chronic GERD K21.9 Time Spent (min) 30 Comment 20 minutes spent with patient and additional 10 minutes spent reviewing her records
== END 2023-01-18 09:35 | disposition home or self-care (01) ==
PROVIDERS: PCP Internal Medicine; Visit Provider Nurse Practitioner Family
DX: K21.9 Gastro-esophageal reflux disease without esophagitis (principal)
CPT/HCPCS: 99213

== ENCOUNTER → 2023-01-18 08:59 | Outpatient (BNVA) | payer BC, SELFPAY | PROVIDERS: PCP Internal Medicine; Visit Provider Nurse Practitioner Family ==

== ENCOUNTER 2023-05-13 09:46 | Outpatient (AMB) | payer BC, SELFPAY ==
[2023-05-13 09:51] VITALS: BP 114/68; PULSE 67; O2SAT 99; BMI 25.6
--- NOTE | 2023-05-13 09:51 | A.OFFPC_ITS ---
Vital Signs 05/13/23 09:51 Height 5 ft 1.5 in Weight 138 lb BMI 25.6 BP 114/68 Blood Pressure Location Lt brachial Position Sitting Pulse 67 Pulse Source Pulse Oximeter Pulse Oximetry (%) 99 Oxygen Delivery Method Room Air Intake Visit Reasons: Annual Exam Licensed Embalmer Supervisor Required: No Finance Business Partner: Not Required per policy Accompanied by: Self / Same As Patient Allergies oxycodone [Percocet] Allergy (Intermediate, Verified 05/13/23 09:52) nightmares Medication List - Last Reconciled 05/13/23 by Titus Cardenas MD cholecalciferol (vitamin D3) 50 mcg PO DAILY famotidine (Pepcid) 20 mg PO BEDTIME lorazepam 1 mg PO Q6-8H PRN pantoprazole 20 mg PO DAILY Tobacco use date assessed: 05/13/23 Dental Screening Dental Screen Date: 05/13/23 Did you have a dental visit in the last 12 months?: Yes Did you have a dental problem in the last 6 months where you did not have access to dental care?: No Was dental information given to patient?: Patient has dentist HPI Annual Exam HPI Details osteoporosis on rx; doing well PFSH Medical History Family history of diabetes mellitus (DM) Elevated fasting glucose Colon polyps Chronic GERD Gastroesophageal reflux disease Surgical History History of esophagogastroduodenoscopy (EGD) Hx of endoscopy History of colonoscopy History of hysterectomy History of section Family History Father Hx of type 1 diabetes mellitus Hx of hiatal hernia Hx of congestive heart failure Mother HTN (hypertension) Social History Household Members: Spouse Housing: House Alcohol intake: current Alcohol intake frequency: does not drink Patient Tobacco Use Status: Former Tobacco user e-Cigarette/Vaping Use: Never Used Second Hand Smoke Exposure: No service: No Current occupational status: employed Sexual orientation: Straight/Heterosexual Gender identity: Female Cognitive needs: No Hearing needs: No Vision needs: Yes Questionnaire PHQ-9 Over the last 2 weeks, how often have you been bothered by any of the following problems? 1. Little interest or pleasure in doing things: not at all 2. Feeling down, depressed, or hopeless: not at all 3. Trouble falling or staying asleep, or sleeping too much: not at all 4. Feeling tired or having little energy: not at all 5. Poor appetite or overeating: not at all 6. Feeling bad about yourself - or that you are a failure or have let yourself or your family down: not at all 7. Trouble concentrating on things, such as reading the newspaper or watching television: not at all 8. Moving or speaking so slowly that other people could have noticed. Or the opposite - being so fidgety or restless that you have been moving around a lot more than usual: not at all 9. Thoughts that you would be better off or of hurting yourself in some way: not at all Total score: 0 Depression Screening Interpretation: Negative Depression Screening Done: Yes 39348 - PHQ-9 Billing: Yes Source: Developed by Drs. Lenny Gonzlaez, Pratima Campa, Billy Coleman and colleagues, with an educational cayden from [employer]. Thrive Questionnaire Date Thrive assessed: 05/13/23 I am a: Patient What is your living situation today?: I have a steady place to live Within the past 12 months, did the food you bought not last and you didn't have the money to get more?: Never true Within the past 12 months, did you worry whether your food would run out before you got money to buy more?: Never true Do you have trouble paying for medicines?: No Do you have trouble getting transportation to medical appointments?: No Do you have trouble paying your heating and electricity bill?: No Do you have trouble taking care of your child, family member or friend?: No Do you have trouble with day-to-day activities such as bathing, preparing meals, shopping, managing finances, etc.?: No Are you currently unemployed and looking for a job?: No Are you interested in more education?: No Please select the resources that you would like help with: None AUDIT C Alcohol Use Questionnaire (AUDIT-C) 1. How often do you have a drink containing alcohol?: Never 3. How often do you have six or more drinks on one occasion?: Never Total Score: 0 Score Reviewed/Action Taken: Yes WILLIAM-7 AMB Questionnaire WILLIAM-7 Date WILLIAM - 7 assessed: 05/13/23 Feeling nervous, anxious, or on edge: 0 = Not at all Not being able to stop or control worryin = Not at all Worrying too much about different things: 0 = Not at all Trouble relaxin = Not at all Being so restless that it is hard to sit still: 0 = Not at all Becoming easily annoyed or irritable: 0 = Not at all Feeling afraid as if something awful might happen: 0 = Not at all Total WILLIAM-7 score (0-4 normal; 5-9 mild; 10-14 moderate; 15-21 severe): 0 Source: Developed by Drs. Lenny Gonzalez, Pratima Campa, Billy Coleman and colleagues, with an educational cayden from [employer]. WILLIAM-7 Assessment Billing WILLIAM-7 Assessment Tool: WILLIAM-7 Assessment 34706 Review of Systems Const Denies chills, Denies fatigue, Denies headache(s) and Denies weight loss Eyes Denies change in vision, Denies diplopia and Denies eye pain ENT Denies vertigo, Denies dizziness, Denies headache(s) and Denies nasal discharge Card Denies chest pain, Denies rapid heart rate and Denies dyspnea on exertion Resp Denies chest congestion, Denies cough, Denies pain with cough and Denies dyspnea on exertion GI Denies abdominal pain, Denies hematochezia and Denies change in bowel habits Musc Denies myalgias, Denies arthralgias and Denies joint swelling Skin/Breast Denies lesions and Denies unusual bruising Neuro Denies vertigo, Denies dizziness, Denies headache(s) and Denies focal weakness Endo Denies fatigue Physical exam (Primary Care) Vital Signs: Last Vital Signs Pulse 67 05/13/23 09:51 BP 114/68 05/13/23 09:51 Pulse Ox 99 05/13/23 09:51 Oxygen Delivery Method Room Air 05/13/23 09:51 BMI result Body Mass Index 25.6 Tobacco/Smoking Status: Tobacco use Status Tobacco use date assessed 05/13/23 05/13/23 09:53 Patient Tobacco Use Status Former Tobacco user 05/13/23 09:53 e-Cigarette/Vaping Use Never Used 05/13/23 09:53 PHQ-9: PHQ-9 Score PHQ-9: Total score 0 05/13/23 09:53 Depression Screening Interpretation: Negative Thrive Assessment: Date of Thrive Assessment Date Thrive assessed 05/13/23 05/13/23 09:53 Const General: cooperative, healthy appearing and no acute distress Orientation/consciousness: oriented to person, oriented to place and oriented to time HENMT Head: Yes normal to inspection, Yes normocephalic and Yes atraumatic Mouth: Normal oral and palatal mucosa present and tongue normal Throat: Yes posterior oropharynx normal and Yes uvula midline Eyes General: appearance normal, both eyes and all related structures Neck Neck: Yes normal visual inspection, Yes full ROM and Yes no lymphadenopathy Thyroid: Thyroid normal Carotids: normal carotid upstroke Chest Chest palpation & inspection: normal inspection of the chest Resp Effort & Inspection: normal respiratory effort and able to speak in complete sentences Auscultation: clear to auscultation bilaterally Cardio Jugular venous distension: no JVD Palpation: normal PMI Rate: regular rate Rhythm: regular rhythm Heart sounds: S1 normal heart sound present and S2 normal heart sound present GI Inspection: Yes normal to inspection Palpation (GI): Soft to palpation and No hepatosplenomegaly present Auscultation: normal bowel sounds General: Yes no CVA tenderness Back/Spine/Pelvis Back: no CVA tenderness Skin General skin exam: no rashes or lesions noted Neuro General: oriented to person, oriented to place and oriented to time Extrem General: Yes normal to inspection and Yes full ROM Assessment and Plan Assessment & Plan (1) Physical exam: Code(s): Z00.00 - Encounter for general adult medical examination without abnormal findings Plan: stable; do labs (2) Osteoporosis: Code(s): M81.0 - Age-related osteoporosis without current pathological fracture Plan: due for bone density Orders: Orders Complete Blood Count Auto Diff Today D64.9 - Anemia, unspecified Comprehensive [place]. Panel Fast Today N28.9 - Disorder of kidney and ureter, unspecified Thyroid Stimulating Hormone Today E03.9 - Hypothyroidism, unspecified Vitamin D 25-OH Total Today Z13.9 - Encounter for screening, unspecified Coding Level of Care Code Est Pt Prev Care 40-64y(31100) Diagnoses Physical exam Z00.00 Osteoporosis M81.0 Additional Codes WILLIAM-7 Assessment Billing - WILLIAM-7 Assessment Tool: WILLIAM-7 Assessment [id number] ([id number])
== END 2023-05-13 10:28 | disposition home or self-care (01) ==
PROVIDERS: Visit Provider Internal Medicine
DX: Z00.00 Encounter for general adult medical examination without abnormal findings (principal); M81.0 Age-related osteoporosis without current pathological fracture
CPT/HCPCS: 99396

== ENCOUNTER 2023-06-06 08:40 | Outpatient (REF) | payer BC, SELFPAY ==
[2023-06-06 08:56] LABS: MANUAL DIFF FLAG NO
[2023-06-06 09:37] LABS: Basophils Percent Auto 0.6 % (0-2); Eosinophils Absolute Auto 0.1 X10*3/uL (0.0-0.4); Eosinophils Percent Auto 2.7 % (0-4); Hematocrit 40.3 % (37.0-47.0); Hemoglobin 13.3 g/dl (12.0-16.0); Imm Gran Abs Auto 0.01 X10*3/uL (0.00-0.03); Imm Gran Pct Auto 0.2 % (0.0-0.4); Lymphocytes Absolute Auto 2.3 X10*3/uL (1.2-4.9); Lymphocytes Percent Auto 44.7 % (20-40); Mean Platelet Volume 11.5 fL (9.4-12.3); Monocytes Absolute Auto 0.4 X10*3/uL (0.1-1.2); Monocytes Percent Auto 8.1 % (2-11); Neutrophils Absolute Auto 2.3 x10*3/uL (2.0-8.3); Neutrophils Percent Auto 43.7 % (45-73); Platelet Count 269 X10*3/uL (160-400); Red Blood Count 4.43 X10*6/uL (4.20-5.50); Red Cell Distribution Width 12.5 % (11.0-16.0); White Blood Count 5.2 X10*3/uL (4.8-10.8)
[2023-06-06 10:16] LABS: Alanine Aminotransferase 26 U/L (0-31); Albumin Level 4.6 g/dL (3.5-5.0); Alkaline Phosphatase 94 U/L (39-117); Anion Gap 14 (12-20); Aspartate Amino Transferase 20 U/L (5-31); Bilirubin Total 0.6 mg/dL (0.0-1.0); Blood Urea Nitrogen 12 mg/dL (9-16); Calcium 9.8 mg/dL (8.4-10.2); Carbon Dioxide 25 mmol/L (22-29); Chloride 107 mmol/L (96-108); Estimated Glomerular Filt Rate > 60; Glucose Fasting 104 mg/dL (60-99); Potassium 3.8 mmol/L (3.3-5.1); Sodium 142 mmol/L (135-145); Total Protein 7.8 g/dL (6.5-8.0)
[2023-06-06 11:09] LABS: Thyroid Stimulating Hormone 3.03 uIU/mL (0.32-4.0); Vitamin D 25-OH Total 42.3 ng/mL (>30)
== END 2023-06-06 08:41 | disposition home or self-care (01) ==
LOC: HO.LAB 08:40
PROVIDERS: PCP Internal Medicine; Visit Provider Internal Medicine
DX: Z13.9 Encounter for screening, unspecified (principal); D64.9 Anemia, unspecified; N28.9 Disorder of kidney and ureter, unspecified; E03.9 Hypothyroidism, unspecified
CPT/HCPCS: 36415; 80053; 82306; 84443; 85025

== ENCOUNTER 2023-07-22 09:15 | Outpatient (AMB) | payer BC, SELFPAY ==
--- NOTE | 2023-07-22 09:31 | MHC.OFFVIS ---
Intake Vital Signs 07/22/23 09:34 Height 5 ft 1.5 in Weight 139 lb BMI 25.8 BP 130/83 Blood Pressure Location Lt brachial Position Sitting Pulse 83 Intake Visit Reasons: 6 month fu Intake Note: Patient follow up for GERD. Patient cc: acid reflex with burning sensation on and off, and denies any other GI issues. Blow Down Operator Required: No Accompanied by: Self / Same As Patient Allergies oxycodone [Percocet] Allergy (Intermediate, Verified 07/22/23 09:31) nightmares HPI 6 month fu HPI Details LAST VISIT: Chronic GERD Continue taking low-dose PPI. Patient can continue that for 2-3 weeks and then slowly start weaning herself of every other day then twice a week. Patient can try Pepcid in between to help her on as needed basis. Continue avoiding dietary triggers and late night snacking. Staying upright for minimum 3 hours after meals discussed with patient. Patient will try to introduce food slowly. Recommended to do it once a week different item. I will see patient in 6 months, sooner on as needed basis. Patient is agreeable to this plan and verbalizes understanding of instructions. She was given the opportunity to ask questions and all questions answered. ? Thank you for allowing me to participate in her care Plan Medications Refilled pantoprazole 20 mg PO DAILY 90 tabs 1RF famotidine (Pepcid) 20 mg PO BEDTIME 90 tabs 3RF K21.9 - Gastro-esophageal reflux disease without esophagitis famotidine (Pepcid) 20 mg PO BEDTIME 90 tabs 3RF K21.9 - Gastro-esophageal reflux disease without esophagitis pantoprazole 20 mg PO DAILY 90 tabs 1RF Discontinued pantoprazole take one tablet half an hour before breakfast Discontinued Reason: Doctor's Order 40 mg PO DAILY 90 tabs 2RF K21.9 - Gastro-esophageal reflux disease without esophagitis LAST VISIT: Patient is here today for follow-up. Patient reports that for the last month or so she has been taking pantoprazole 2 to 3 times a week. Sometimes on the days that she does not take the medication she reports to have occasional dyspepsia. Patient is trying to change her diet. Patient is trying to do plant based diet most. However she does eat meat. Avoids pork and beef. Patient is eating chicken fish and vegetables. Patient is avoiding gluten as much as she can. Avoiding lactose as well. Patient denies any dysphagia or odynophagia. Denies any nausea or vomiting. Patient denies any abdominal pain or discomfort. That she is moving her bowels without any issues. Denies any melena, hematochezia, unintentional weight loss or ribbon like stools. [facility] Medical History Family history of diabetes mellitus (DM) Elevated fasting glucose Colon polyps Chronic GERD Gastroesophageal reflux disease Surgical History History of esophagogastroduodenoscopy (EGD) Hx of endoscopy History of colonoscopy History of hysterectomy History of section Family History Father Hx of type 1 diabetes mellitus Hx of hiatal hernia Hx of congestive heart failure Mother HTN (hypertension) Social History Household Members: Spouse Housing: House Alcohol intake: current Alcohol intake frequency: does not drink Patient Tobacco Use Status: Former Tobacco user e-Cigarette/Vaping Use: Never Used Second Hand Smoke Exposure: No service: No Current occupational status: employed Sexual orientation: Straight/Heterosexual Gender identity: Female Cognitive needs: No Hearing needs: No Vision needs: Yes Review of Systems Const Denies weight gain and Denies weight loss ENT Reports no additional complaints, Denies dysphagia and Denies odynophagia Card Reports no additional complaints Resp Reports no additional complaints GI Denies abdominal pain, Denies belching, Denies melena, Denies bloating, Denies change in bowel habits, Denies dysphagia, Denies excessive flatus, Denies dyspepsia, Denies heartburn, Denies diarrhea, Denies loose stools, Denies nausea, Denies odynophagia and Denies vomiting Reports no additional complaints Musc Reports no additional complaints Neuro Reports no additional complaints Psych Reports no additional complaints Endo Reports no additional complaints Physical Exam Vital Signs: Last Vital Signs Pulse 83 07/22/23 09:34 BP 130/83 07/22/23 09:34 BMI result Body Mass Index 25.8 Const General: healthy appearing, no acute distress and well developed Nutritional Appearance: well nourished Orientation/consciousness: patient oriented x3 Resp Effort & Inspection: normal respiratory effort, able to speak in complete sentences, no tracheal deviation and symmetric chest movement Auscultation: clear to auscultation bilaterally Cardio Rate: regular rate GI Inspection: Yes normal to inspection and No distended Palpation (GI): Soft to palpation, not firm, nontender and No hepatosplenomegaly present Auscultation: normal bowel sounds General: Yes no CVA tenderness Back/Spine/Pelvis Back: no CVA tenderness Skin General skin exam: elasticity normal, turgor normal and dry skin Neuro General: patient oriented x3 Psych Appearance: grossly normal Mental Status: mental status grossly normal Assessment & Plan Assessment & Plan (1) Chronic GERD: Code(s): K21.9 - Gastro-esophageal reflux disease without esophagitis Plan Patient will continue pantoprazole. Patient can use Pepcid on as needed basis on the days that she is not taking the pantoprazole. Patient can slowly wean herself off of the medication. Continue avoiding dietary triggers and late night snacking. Staying upright for minimal 3 hours after meals discussed with patient. Patient does report occasional abdominal bloating. Low FODMAP diet discussed with patient recommended as well as list of food to avoid given to patient. I will see patient in 6 months, sooner on as needed basis. Patient is agreeable to this plan and verbalizes understanding of instructions. She was given the opportunity all questions answered. Thank you for allowing me to participate in her care Coding Level of Care Code Est Pt Level 3 (45972) Diagnoses Chronic GERD K21.9 Time Spent (min) 25 Comment 15 minutes spent with patient and additional 10 minutes spent reviewing her records
[2023-07-22 09:34] VITALS: BP 130/83; PULSE 83; BMI 25.8
== END 2023-07-22 11:08 | disposition home or self-care (01) ==
PROVIDERS: PCP Internal Medicine; Visit Provider Nurse Practitioner Family
DX: K21.9 Gastro-esophageal reflux disease without esophagitis (principal)
CPT/HCPCS: 99213

== ENCOUNTER → 2023-07-22 09:15 | Outpatient (BNVA) | payer BC, SELFPAY | PROVIDERS: PCP Internal Medicine; Visit Provider Nurse Practitioner Family ==

== ENCOUNTER 2023-07-30 12:22 | Outpatient (REF) | payer BC, SELFPAY ==
--- NOTE | ~2023-07-30 | MM_ITS ---
EXAMINATION: BONE DENSITOMETRY CLINICAL INDICATION: Osteopenia. COMPARISON: Previous BD dated 06/08/2021 and baseline BD dated 04/03/2019. TECHNIQUE: Using a [employer] DXA System (software version: 13.1) manufactured by [employer], dual-energy x-ray absorptiometry was performed of the lumbar spine and left hip. The images are of good technical quality. Summary results are attached. FINDINGS: LEFT FEMUR, NECK: Current: BMD 0.747 g/cm2, Z-score -0.8, T-score -2.1, osteopenia. Prior: BMD 0.638 g/cm2. Baseline: BMD 0.761 g/cm2. LEFT FEMUR, TOTAL: Current: BMD 0.768 g/cm2, Z-score -0.9, T-score -1.9, osteopenia, 12.4% increase from previous, 6.6% decrease from baseline (<5% change is not significant). Prior: BMD 0.683 g/cm2. Baseline: BMD 0.822 g/cm2. AP SPINE L1-L4: Current: BMD 0.868 g/cm2, Z-score -1.3, T-score -2.6, osteoporosis, 4.6% decrease from previous, 7.7% decrease from baseline (<5% change is not significant). Prior: BMD 0.910 g/cm2. Baseline: BMD 0.940 g/cm2. IDENTIFIED RISK FACTORS: Early menopause, hysterectomy, osteoporosis, secondary osteoporosis. HISTORY OF FRACTURE: None listed. MEDICATIONS: Vitamin D. MM/XR DEXA axial skeleton IMPRESSION: 1. DIAGNOSIS: Osteoporosis based on the lowest T-score value of -2.6 in the lumbar spine applying World Health Organization criteria. 2. 10-YEAR FRACTURE RISK PREDICTION, FRAX: According to the guidelines, FRAX calculation should only be performed on patients in the osteopenia bone density category. Therefore, FRAX was not performed on this patient. 3. Treatment Recommendations: NOF guidelines recommend consideration for treatment in postmenopausal women and men age 50 and older presenting with the following: -A hip or vertebral (clinical or morphometric) fracture. -T-score less than or equal to -2.5 at the femoral neck or spine after appropriate evaluation to exclude secondary causes. -Low bone mass at the hip or spine and a 10-year fracture probability by FRAX of greater than or equal to 3% for hip fracture or greater than or equal to 20% for major osteoporotic fracture based on the [place] adapted WHO algorithm. 4. Other Recommendations: All treatment decisions require clinical judgment and consideration of individual patient factors, including patient preferences, comorbidities, previous drug use, risk factors not captured in the FRAX model (e.g. frailty, falls, vitamin D deficiency, increased bone turnover, interval significant decline in bone density) and possible under or overestimation of fracture risk by FRAX. Additional medical evaluation for secondary cause of low bone mineral density may be appropriate. FUTURE SCAN RECOMMENDATION: People with diagnosed cases of osteoporosis or at high risk for fracture should have regular bone mineral density tests. For patients eligible for Medicare, routine testing is allowed once every 2 years. The testing frequency can be increased to one year for patients who have rapidly progressing disease, those who are receiving or discontinuing medical therapy to restore bone mass, or have additional risk factors.
== END 2023-07-30 12:23 | disposition home or self-care (01) ==
LOC: HO.MAMMO 12:22
PROVIDERS: PCP Internal Medicine; Visit Provider Internal Medicine
DX: Z12.31 Encounter for screening mammogram for malignant neoplasm of breast (principal); Z13.820 Encounter for screening for osteoporosis; M85.80 Other specified disorders of bone density and structure, unspecified site; Z78.0 Asymptomatic menopausal state
CPT/HCPCS: 77063; 77067; 77080

== ENCOUNTER → 2023-07-30 13:00 | Outpatient (BNV) | payer BC, SELFPAY | PROVIDERS: PCP Internal Medicine; Visit Provider Radiology Diagnostic Radiology | DX: Z12.31 Encounter for screening mammogram for malignant neoplasm of breast (principal) | CPT/HCPCS: 77063; 77067 ==

== ENCOUNTER 2024-01-16 13:56 | Outpatient (REF) | payer BC, SELFPAY ==
[2024-01-17 02:33] LABS: CT PCR NOT DETECTED (Not Detect.); NG PCR NOT DETECTED (Not Detect.)
[2024-01-17 11:03] LABS: Bacterial Vaginosis PCR NEGATIVE (Negative); Candida Group PCR NOT DETECTED (Not Detect); Candida glab krusei PCR NOT DETECTED (Not Detect); Trichomonas vaginalis PCR NOT DETECTED (Not Detect)
[2024-01-20 17:03] LABS: HPV mRNA E6/E7 Not Detected (Not Detected)
== END 2024-01-16 13:57 | disposition home or self-care (01) ==
LOC: HO.LAB 13:56
PROVIDERS: PCP Internal Medicine; Visit Provider Advanced Practice Midwife
DX: Z20.2 Contact with and (suspected) exposure to infections with a predominantly sexual mode of transmission (principal); N89.8 Other specified noninflammatory disorders of vagina; Z11.51 Encounter for screening for human papillomavirus (HPV)
CPT/HCPCS: 0352U; 36415; 87491; 87591; 87624; 88175

== ENCOUNTER 2024-01-16 13:56 | Outpatient (AMB) | payer BC, SELFPAY ==
--- NOTE | 2024-01-16 14:02 | A.OFFVIS_ITS ---
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 She has the noticing hot flashes which can be challenging especially at night and she is noticing atrophic changes that are bothersome when she is intimate with her and then it hurts and she has to take time to recover and she is wondering what her options are about that and she is wondering about 1 cream but since she is very nervous about it too because she had a mother who of uterine cancer or cervical cancer so she is nervous about that. She is healthy otherwise except for some GI concerns she was told she has osteoporosis and so she was on alendronate and despite being very religion about how she took medication and being upright she developed upper GIs symptoms and problems and she has had full evaluations of these and so she is constantly working that problem and very attentive to the truth that 1 medication effects other body systems and to pay attention to side effects and she is trying very hard to steer away from some medications and stick with more natural treatments and is very mindful of her diet and calcium needs and exercise and weight-bearing exercise and walking. [facility] Medical History Family history of diabetes mellitus (DM) Elevated fasting glucose Colon polyps Chronic GERD Gastroesophageal reflux disease Surgical History History of esophagogastroduodenoscopy (EGD) Hx of endoscopy History of colonoscopy History of hysterectomy History of section Family History Father Hx of type 1 diabetes mellitus Hx of hiatal hernia Hx of congestive heart failure Mother HTN (hypertension) Social History Household Members: Spouse Housing: House Alcohol intake: current Alcohol intake frequency: does not drink Patient Tobacco Use Status: Former Tobacco user e-Cigarette/Vaping Use: Never Used Second Hand Smoke Exposure: No service: No Current occupational status: employed Sexual orientation: Straight/Heterosexual Gender identity: Female Cognitive needs: No Hearing needs: No Vision needs: Yes Female Reproductive History Menstrual Age of Menarche: 16 Duration of menses: 3-5 days control method: none Total pregnancies: 4 Full term: 4 Date of last pap smear: 05/09/21 (negative) History of abnormal pap smear: Yes (40 yrs ago,unsure date) Date of Mammogram: 07/30/23 (negative) Physical Exam Vital Signs: Last Vital Signs BP 118/70 01/16/24 14:07 BMI result Body Mass Index 26.6 Const General: healthy appearing, comfortable, no acute distress, well developed and alert Nutritional Appearance: average body habitus Orientation/consciousness: patient oriented x3 Limitations: no limitations HEENT Head: Yes normocephalic Neck Neck: Yes normal visual inspection Thyroid: Thyroid normal Chest Chest palpation & inspection: normal inspection of the chest Breast/axilla inspection: normal inspection of the breasts and normal inspection of the axillae Breast/axilla palpation: normal palpation of the breasts and normal palpation of the axillae Resp Effort & Inspection: normal respiratory effort GI Inspection: Yes normal to inspection, No Abdominal wall edema and No distended Palpation (GI): Soft to palpation and nontender Other: Normal external exam vagina is pink moist with some atrophic changes Pap smear taken of vaginal cuff area which almost had the appearance of a cervix but there was no cervix present verified by bimanual exam vaginal mucosa pink and atrophic uterus absent good tone with Kegel. No adnexal tenderness or enlargement. General: Yes bladder normal to palpation External Female Exam: normal external appearance and normal appearance of the urethra Speculum Exam - Vagina: normal appearance of the vagina, normal palpation and normal vaginal discharge Speculum Exam - Cervix: Cervix absent Bimanual exam- vagina & uterus: normal bimanual exam, normal palpation, bladder normal to palpation, uterus absent and cervical motion tenderness Bimanual Exam- Adnexa, other: normal adnexae, no masses, normal and No adnexal tenderness Neuro General: patient oriented x3 Results Reviewed Results Reviewed: Name: Caitlin Cortes Age/Sex: 60/F Attending: Kristin Eastman CNM : 1960 Submitted by: Kristin Eastman CNM Copies to: MR #: [id number] Status: DEP REF Collected: 05/08/21 Location: .LAB Received: 05/09/21 Interpretation Satisfactory for evaluation. Negative for intraepithelial lesion or malignancy. HPV mRNA E6/E7: NOT DETECTED This assay detects E6/E7 viral messenger RNA (mRNA) from 14 high-risk HPV types (16, 18, 31, 33, 35, 39, 45, 51, 52, 56, 58, 59, 66, 68) HPV testing performed by [facility], [place], [place]. See reference laboratory portion of the EMR for entire report. Clinical Information LMP: Unknown date Previous PAP test: Unknown date Material Received ThinPrep- Vaginal Electronically Signed By: KAYLAH Huang (ASC) 05/15/21 1531 The Pap Test is a screening procedure with the inherent possibility of both false negative and false positive results. Results should be interpreted in the context of historic and current clinical findings. Reliability of the Pap Test is enhanced by performing the test on a regular repetitive basis. Patient: Caitlin Cortes Age/Sex: 60/F MR#: [id number] Page 1 of 1 Patient: Caitlin Cortes MR#: [id number] : 1960 Acct:[id number] Age/Sex: 62 / F ADM Date: 07/30/23 Loc: HO.MAMMO Attending Dr: Titus Cardenas MD Ordering Physician: Titus Cardenas MD Results: 1Negative Date of Service: 07/30/23 Follow Up: 1 Year From Original Mammogram Procedure(s): MM tomosynthesis screening BI Accession Number(s): [id number] cc: Titus Cardenas MD~ EXAMINATION: MM SCREENING DIGITAL BREAST TOMOSYNTHESIS, BILATERAL CLINICAL INFORMATION: Screening. Asymptomatic. COMPARISON: Mammography: This study is compared with prior exams dating back to 2019. TECHNIQUE: Digital breast tomosynthesis is performed in both the craniocaudal and mediolateral oblique views along with computer-aided detection (CAD). Synthesized 2D images are generated from the tomosynthesis. FINDINGS: There are scattered areas of fibroglandular density (ACR BI-RADS breast composition Category b). There are no significant masses, abnormal calcifications, or other abnormalities. MM/MM tomosynthesis screening BI IMPRESSION: No mammographic evidence of malignancy. ASSESSMENT: BI-RADS BI-RADS 1 - Negative RECOMMENDATION: Routine annual mammography screening. 1 year F/U This examination should not preclude the clinical evaluation of a suspicious palpable abnormality. This patient's information was entered into a reminder system with a target due date for their next mammogram. Dictated By: Rachana Garcia MD Signed By: <Electronically signed by Rachana Garcia MD in OV> 08/22/23 0457 DD/ 1235 TD/TT: Logging Specialist: Assessment & Plan Assessment & Plan (1) Cervical cancer screening: Comment: Cells 40 years ago. Had hysterectomy 1993 for submucosal fibroid the size of a grapefruit. 05/08/21 pap= neg w neg hpv. Questioning the benefits of vaginal estrogen cream Pap smear done for thoroughness 01/16/2024 of vaginal cuff Code(s): Z12.4 - Encounter for screening for malignant neoplasm of cervix Category: Medical (2) Women's annual routine gynecological examination: Code(s): Z01.419 - Encounter for gynecological examination (general) (routine) without abnormal findings Category: Medical (3) Osteoporosis: Code(s): M81.0 - Age-related osteoporosis without current pathological fracture Category: Medical (4) Chronic GERD: Code(s): K21.9 - Gastro-esophageal reflux disease without esophagitis Category: Medical Plan -----Discussed in this visit the following: healthy balanced diet, regular and consistent exercise, getting recommended health screens, doing the best she can for her particular health concerns, kegel exercises, pap smear screening and followup recommendations, mammography screening and SBE, normal changes in cycles in her life stage--- . See HPI extensive discussion about menopause and its changes and also especially about vaginal lubrication and [id number] water-based lubricants and other suggestions that other women have shared such as use of coconut oil. Pap smear was done when she was considering that maybe she might want to embrace the option in the future of considering an estrogen vaginal cream and I did discuss with her how that is used. However she has a very anxious about it because of her family history so she would much prefer to use [id number] and natural options discussed possible use of aloe vera witch Mary coconut oil all the boil and they are drawbacks. Discussed what she has been using naturally to help her with her acid reflux including a small tiny amount of sodium bicarb and water with relief also suggested Tums additionally as the calcium source as well. She will be conversing with her GI providers next week further about this. Orders: Orders CT NG by PCR Today N89.8 - Other specified noninflammatory disorders of vagina, Z20.2 - Contact with and (suspected) exposure to infections with a predominantly sexual mode of transmission Bacterial Vaginosis Panel Today N89.8 - Other specified noninflammatory disorders of vagina PAP + HPV E6/E7 rfx 18/45 Today Coding Level of Care Code Est Pt Prev Care 40-64y(90205) Diagnoses Cervical cancer screening Z12.4 Women's annual routine gynecological examination Z01.419 Osteoporosis M81.0 Chronic GERD K21.9
[2024-01-16 14:07] VITALS: BP 118/70; BMI 26.6
== END 2024-01-16 15:02 | disposition home or self-care (01) ==
LOC: HO.HWSM 13:56
PROVIDERS: PCP Internal Medicine; Visit Provider Advanced Practice Midwife
DX: Z12.4 Encounter for screening for malignant neoplasm of cervix (principal); Z01.419 Encounter for gynecological examination (general) (routine) without abnormal findings; M81.0 Age-related osteoporosis without current pathological fracture; K21.9 Gastro-esophageal reflux disease without esophagitis
CPT/HCPCS: 99396

== ENCOUNTER 2024-01-20 09:57 | Outpatient (AMB) | payer BC, SELFPAY ==
[2024-01-20 09:59] VITALS: BP 119/68; PULSE 83; BMI 26.0
--- NOTE | 2024-01-20 09:59 | MHC.OFFVIS ---
Vital Signs 01/20/24 09:59 Height 5 ft 1.5 in Weight 140 lb BMI 26.0 BP 119/68 Blood Pressure Location Lt brachial Position Sitting Pulse 83 Intake Visit Reasons: 6 month follow up Intake Note: Patient 6 month follow up for Chronic GERD. Patient cc: acid reflex at night time with burning sensation, denies any other GI issues. 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 Patient can use Pepcid on as needed basis on the days that she is not taking the pantoprazole. Patient can slowly wean herself off of the medication. Continue avoiding dietary triggers and late night snacking. Staying upright for minimal 3 hours after meals discussed with patient. Patient does report occasional abdominal bloating. Low FODMAP diet discussed with patient recommended as well as list of food to avoid given to patient. I will see patient in 6 months, sooner on as needed basis. Patient is agreeable to this plan and verbalizes understanding of instructions. She was given the opportunity all questions answered. ? TODAY'S VISIT: Patient is here today for follow-up. Patient reports that she has been taking Pepcid in the evening and usually in the afternoon the next day she will have acid reflux. Patient reports that it is almost every day. Feels like the Pepcid is wearing off and not working as well as she would like. Patient denies any nausea or vomiting. Reports abdominal bloating. Patient is trying to follow the low FODMAP diet as much as she can. Patient denies melena, dyspepsia, dysphagia or odynophagia. Denies melena, hematochezia. Patient denies any nausea or vomiting. Patient is moving her bowels well. Patient is taking probiotic and fiber supplements. Patient is drinking plenty fluids and eating lots of vegetables. [facility] Medical History Family history of diabetes mellitus (DM) Elevated fasting glucose Colon polyps Chronic GERD Gastroesophageal reflux disease Surgical History History of esophagogastroduodenoscopy (EGD) Hx of endoscopy History of colonoscopy History of hysterectomy History of section Family History Father Hx of type 1 diabetes mellitus Hx of hiatal hernia Hx of congestive heart failure Mother HTN (hypertension) Social History Household Members: Spouse Housing: House Alcohol intake: current Alcohol intake frequency: does not drink Patient Tobacco Use Status: Former Tobacco user e-Cigarette/Vaping Use: Never Used Second Hand Smoke Exposure: No service: No Current occupational status: employed Sexual orientation: Straight/Heterosexual Gender identity: Female Cognitive needs: No Hearing needs: No Vision needs: Yes Female Reproductive History Menstrual Age of Menarche: 16 Review of Systems Const Denies weight gain and Denies weight loss ENT Reports no additional complaints, Denies dysphagia and Denies odynophagia Card Reports no additional complaints Resp Reports no additional complaints GI Denies abdominal pain, Denies belching, Denies melena, Reports bloating, Denies change in bowel habits, Denies dysphagia, Denies excessive flatus, Reports dyspepsia, Reports heartburn, Denies diarrhea, Denies loose stools, Denies nausea, Denies odynophagia and Denies vomiting Reports no additional complaints Musc Reports no additional complaints Neuro Reports no additional complaints Psych Reports no additional complaints Endo Reports no additional complaints Physical Exam Vital Signs: Last Vital Signs Pulse 83 01/20/24 09:59 BP 119/68 01/20/24 09:59 BMI result Body Mass Index 26.0 Const General: healthy appearing, no acute distress and well developed Nutritional Appearance: well nourished Orientation/consciousness: patient oriented x3 Resp Effort & Inspection: normal respiratory effort, able to speak in complete sentences, no tracheal deviation and symmetric chest movement Auscultation: clear to auscultation bilaterally Cardio Rate: regular rate GI Inspection: Yes normal to inspection and No distended Palpation (GI): Soft to palpation, not firm, nontender and No hepatosplenomegaly present Auscultation: normal bowel sounds General: Yes no CVA tenderness Back/Spine/Pelvis Back: no CVA tenderness Skin General skin exam: elasticity normal, turgor normal and dry skin Neuro General: patient oriented x3 Psych Appearance: grossly normal Mental Status: mental status grossly normal Assessment & Plan Assessment & Plan (1) Chronic GERD: Code(s): K21.9 - Gastro-esophageal reflux disease without esophagitis Category: Medical (2) IBS (irritable bowel syndrome): Code(s): K58.9 - Irritable bowel syndrome without diarrhea Qualifiers: Irritable bowel syndrome type: with both diarrhea and constipation Qualified Code(s): K58.2 - Mixed irritable bowel syndrome Plan Patient will start taking low-dose pantoprazole every morning. That will help with reflux. Patient will call our office in couple weeks if her symptoms will still continue. Take famotidine at bedtime. We discussed trial for 3-4 months of pantoprazole and then we can wean patient off to take it every other day. Continue probiotic and fiber. Avoid dietary triggers and late night snacking. Staying upright for minimum 3 hours after meals discussed with patient. Patient will return in the office in 3-4 months. She is agreeable to this plan and verbalizes understanding of instructions. She was given the opportunity to ask questions and all questions answered. Thank you for allowing me to participate in her care Medications: New pantoprazole 20 mg PO DAILY 90 tabs 1RF Refilled famotidine (Pepcid) 20 mg PO BEDTIME 90 tabs 3RF K21.9 - Gastro-esophageal reflux disease without esophagitis Coding Level of Care Code Est Pt Level 3 (73711) Diagnoses Chronic GERD K21.9 Irritable bowel syndrome with both constipation and diarrhea K58.2 Irritable bowel syndrome type: with both diarrhea and constipation Time Spent (min) 30 Comment 20 minutes spent with patient and additional 10 minutes spent reviewing her records
== END 2024-01-20 10:40 | disposition home or self-care (01) ==
PROVIDERS: PCP Internal Medicine; Visit Provider Nurse Practitioner Family
DX: K21.9 Gastro-esophageal reflux disease without esophagitis (principal); K58.2 Mixed irritable bowel syndrome
CPT/HCPCS: 99213

== ENCOUNTER → 2024-01-20 09:57 | Outpatient (BNVA) | payer BC, SELFPAY | PROVIDERS: PCP Internal Medicine; Visit Provider Nurse Practitioner Family ==

== ENCOUNTER 2024-02-11 07:56 | Outpatient (REF) | payer BC, SELFPAY | END 2024-02-11 07:57 | disposition home or self-care (01) | LOC: HO.SH 07:56 | PROVIDERS: Visit Provider Internal Medicine | DX: Z01.118 Encounter for examination of ears and hearing with other abnormal findings (principal); H90.3 Sensorineural hearing loss, bilateral | CPT/HCPCS: 92557 ==

== ENCOUNTER 2024-05-15 09:56 | Outpatient (AMB) | payer BC, SELFPAY ==
--- NOTE | 2024-05-15 09:57 | MHC.PC.OV ---
Vital Signs 05/15/24 10:00 Height 5 ft 1.5 in Weight 144 lb BMI 26.8 BP 110/72 Blood Pressure Location Lt brachial Position Sitting Pulse 81 Pulse Source Pulse Oximeter Pulse Oximetry (%) 97 Oxygen Delivery Method Room Air Intake Visit Reasons: ANNUAL Intake Note: Patient is here today for a physical. 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: Not Required per policy Accompanied by: Self / Same As Patient Allergies oxycodone [Percocet] Allergy (Intermediate, Verified 05/15/24 09:59) nightmares Medication List - Last Reconciled 05/18/24 by Titus Cardenas MD cholecalciferol (vitamin D3) 50 mcg PO DAILY famotidine (Pepcid) 20 mg PO BEDTIME lorazepam 1 mg PO Q6-8H PRN pantoprazole 20 mg PO DAILY Tobacco use date assessed: 05/15/24 Dental Screening Dental Screen Date: 05/15/24 Did you have a dental visit in the last 12 months?: Yes Did you have a dental problem in the last 6 months where you did not have access to dental care?: No Was dental information given to patient?: Patient has dentist HPI ANNUAL HPI Details GERD; sees gastro PFSH Medical History Family history of diabetes mellitus (DM) Elevated fasting glucose Colon polyps Chronic GERD Gastroesophageal reflux disease Surgical History History of esophagogastroduodenoscopy (EGD) Hx of endoscopy History of colonoscopy History of hysterectomy History of section Family History (Updated 05/15/24 @ 09:57 by MARKO Momin) Father Hx of type 1 diabetes mellitus Hx of hiatal hernia Hx of congestive heart failure Mother HTN (hypertension) Social History Household Members: Spouse Housing: House Alcohol intake: current Alcohol intake frequency: does not drink Patient Tobacco Use Status: Former Tobacco user e-Cigarette/Vaping Use: Never Used Second Hand Smoke Exposure: Yes service: No Current occupational status: employed Sexual orientation: Straight/Heterosexual Gender identity: Female Cognitive needs: No Hearing needs: No Vision needs: Yes (Glasses) Female Reproductive History Menstrual Age of Menarche: 16 Questionnaire PHQ-9 Over the last 2 weeks, how often have you been bothered by any of the following problems? 2. Feeling down, depressed, or hopeless: not at all 3. Trouble falling or staying asleep, or sleeping too much: not at all 4. Feeling tired or having little energy: not at all 5. Poor appetite or overeating: not at all 6. Feeling bad about yourself - or that you are a failure or have let yourself or your family down: not at all 7. Trouble concentrating on things, such as reading the newspaper or watching television: not at all 8. Moving or speaking so slowly that other people could have noticed. Or the opposite - being so fidgety or restless that you have been moving around a lot more than usual: not at all 9. Thoughts that you would be better off or of hurting yourself in some way: not at all Depression Screening Interpretation: Negative Depression Screening Done: Yes 65378 - PHQ-9 Billing: Yes Source: Developed by Drs. Lenny Gonzalez, Pratima Campa, Billy Coleman and colleagues, with an educational cayden from [employer]. Thrive Questionnaire Date Thrive assessed: 05/07/24 I am a: Patient What is your living situation today?: I have a steady place to live Within the past 12 months, did the food you bought not last and you didn't have the money to get more?: Never true Within the past 12 months, did you worry whether your food would run out before you got money to buy more?: Never true Do you have trouble paying for medicines?: No Do you have trouble getting transportation to medical appointments?: No Do you have trouble paying your heating and electricity bill?: No Do you have trouble taking care of your child, family member or friend?: No Do you have trouble with day-to-day activities such as bathing, preparing meals, shopping, managing finances, etc.?: No Are you currently unemployed and looking for a job?: Yes Are you interested in more education?: No Please select the resources that you would like help with: None Currently or been in a relationship where the following occur: No concerns reported THRIVE Score: 0 AUDIT C Alcohol Use Questionnaire (AUDIT-C) 1. How often do you have a drink containing alcohol?: Never Total Score: 0 WILLIAM-7 AMB Questionnaire WILLIAM-7 Date WILLIAM - 7 assessed: 05/13/23 Source: Developed by Drs. Lenny Gonzalez, Pratima Campa, Billy Coleman and colleagues, with an educational cayden from [employer]. Review of Systems Const Denies chills, Denies fatigue, Denies headache(s) and Denies weight loss Eyes Denies change in vision, Denies diplopia and Denies eye pain ENT Denies vertigo, Denies dizziness, Denies headache(s) and Denies nasal discharge Card Denies chest pain, Denies rapid heart rate and Denies dyspnea on exertion Resp Denies chest congestion, Denies cough, Denies pain with cough and Denies dyspnea on exertion GI Denies abdominal pain, Denies hematochezia and Denies change in bowel habits Musc Denies myalgias, Denies arthralgias and Denies joint swelling Skin/Breast Denies lesions and Denies unusual bruising Neuro Denies vertigo, Denies dizziness, Denies headache(s) and Denies focal weakness Endo Denies fatigue Physical exam (Primary Care) Vital Signs: Last Vital Signs Pulse 81 05/15/24 10:00 BP 110/72 05/15/24 10:00 Pulse Ox 97 05/15/24 10:00 Oxygen Delivery Method Room Air 05/15/24 10:00 BMI result Body Mass Index 26.8 Tobacco/Smoking Status: Tobacco use Status Tobacco use date assessed 05/15/24 05/15/24 10:04 Patient Tobacco Use Status Former Tobacco user 05/15/24 10:04 e-Cigarette/Vaping Use Never Used 05/15/24 10:04 Depression Screening Interpretation: Negative Thrive Assessment: Date of Thrive Assessment Date Thrive assessed 05/07/24 05/15/24 10:04 Currently or been in a relationship where the following occur: No concerns reported Const General: cooperative, healthy appearing and no acute distress Orientation/consciousness: oriented to person, oriented to place and oriented to time [facility] Head: Yes normal to inspection, Yes normocephalic and Yes atraumatic Mouth: Normal oral and palatal mucosa present and tongue normal Throat: Yes posterior oropharynx normal and Yes uvula midline Eyes General: appearance normal, both eyes and all related structures Neck Neck: Yes normal visual inspection, Yes full ROM and Yes no lymphadenopathy Thyroid: Thyroid normal Carotids: normal carotid upstroke Chest Chest palpation & inspection: normal inspection of the chest Resp Effort & Inspection: normal respiratory effort and able to speak in complete sentences Auscultation: clear to auscultation bilaterally Cardio Jugular venous distension: no JVD Palpation: normal PMI Rate: regular rate Rhythm: regular rhythm Heart sounds: S1 normal heart sound present and S2 normal heart sound present GI Inspection: Yes normal to inspection Palpation (GI): Soft to palpation and No hepatosplenomegaly present Auscultation: normal bowel sounds General: Yes no CVA tenderness Back/Spine/Pelvis Back: no CVA tenderness Skin General skin exam: no rashes or lesions noted Neuro General: oriented to person, oriented to place and oriented to time Extrem General: Yes normal to inspection and Yes full ROM Coding Level of Care Code Est Pt Prev Care 40-64y(26929) Diagnoses Physical exam Z00.00 Chronic GERD K21.9 Additional Codes PHQ-9 - 32386 - PHQ-9 Billing: Yes ([id number]) Assessment & Plan Assessment & Plan (1) Physical exam: Code(s): Z00.00 - Encounter for general adult medical examination without abnormal findings Category: Medical Plan: stable; doo labs (2) Chronic GERD: Code(s): K21.9 - Gastro-esophageal reflux disease without esophagitis Category: Medical Plan: as per GI Orders: Orders Thyroid Stimulating Hormone 05/15/24 Z13.29 - Encounter for screening for other suspected endocrine disorder Complete Blood Count Auto Diff 05/15/24 Z13.0 - Encounter for screening for diseases of the blood and blood-forming organs and certain disorders involving the immune mechanism Lipid Panel 05/15/24 Z13.220 - Encounter for screening for lipoid disorders Hemoglobin A1c 05/15/24 R73.9 - Hyperglycemia, unspecified Comprehensive [place]. Panel Fast 05/15/24 Z13.9 - Encounter for screening, unspecified
[2024-05-15 10:00] VITALS: BP 110/72; PULSE 81; O2SAT 97; BMI 26.8
== END 2024-05-15 10:27 | disposition home or self-care (01) ==
PROVIDERS: PCP Internal Medicine; Visit Provider Internal Medicine
DX: Z00.00 Encounter for general adult medical examination without abnormal findings (principal); K21.9 Gastro-esophageal reflux disease without esophagitis

== ENCOUNTER → 2024-05-15 09:56 | Outpatient (BNVA) | payer BC, SELFPAY | PROVIDERS: PCP Internal Medicine; Visit Provider Internal Medicine | DX: Z00.00 Encounter for general adult medical examination without abnormal findings (principal); K21.9 Gastro-esophageal reflux disease without esophagitis | CPT/HCPCS: 96127 ==

== ENCOUNTER 2024-05-18 09:58 | Outpatient (AMB) | payer BC, SELFPAY ==
[2024-05-18 10:15] VITALS: BP 136/72; PULSE 76; O2SAT 97; BMI 27.6
--- NOTE | 2024-05-18 10:15 | A.OFFVIS_ITS ---
Vital Signs 05/18/24 10:15 Height 5 ft 1 in Weight 145 lb 15.136 oz BMI 27.6 BP 136/72 Blood Pressure Location Rt brachial Position Sitting Pulse 76 Pulse Source Pulse Oximeter Pulse Oximetry (%) 97 Oxygen Delivery Method Room Air Intake Visit Reasons: 4 month follow up Intake Note: ESTABLISHED PATIENT Caitlin presents in office today for a scheduled 4 mos FUV. Meds reviewed? Y Allergies reviewed? Y No recent surgeries, labs, or imaging. Any significant concerns or new changes? Pt has been experiencing GERD sx including aspiration. Pt had an episode where she felt the fluids were present in her lungs and had SOB and irritation of her airway. Pharmacy verified? [facility] [employer] Goods Required: No Allergies oxycodone [Percocet] Allergy (Intermediate, Verified 05/18/24 10:20) nightmares HPI HPI 4 month follow up: Details: LAST VISIT Chronic GERD IBS (irritable bowel syndrome) Plan Patient will start taking low-dose pantoprazole every morning. That will help with reflux. Patient will call our office in couple weeks if her symptoms will still continue. Take famotidine at bedtime. We discussed trial for 3-4 months of pantoprazole and then we can wean patient off to take it every other day. Continue probiotic and fiber. Avoid dietary triggers and late night snacking. Staying upright for minimum 3 hours after meals discussed with patient. Patient will return in the office in 3-4 months. She is agreeable to this plan and verbalizes understanding of instructions. She was given the opportunity to ask questions and all questions answered. ? Thank you for allowing me to participate in her care Medications New pantoprazole 20 mg PO DAILY 90 tabs 1RF Refilled famotidine (Pepcid) 20 mg PO BEDTIME 90 tabs 3RF K21.9 TODAY'S VISIT Patient is here today for follow-up. Patient reports that for the most part she has been feeling well. However she had incident about a week ago or so where she woke up and feeling like choking. Patient was tasting the food that she ate that evening. Patient reports that she has been doing really well and staying away from fried food. 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 Patient reports that they were not spicy but they use some sort of a rub. For the most part patient states that she is doing well with the pantoprazole. Not taking the famotidine as often. Occasionally will be constipated, tries to increase water intake seems to be helping. Patient denies any melena, hematochezia, unintentional weight loss or ribbon like stools. Patient denies any dyspepsia, dysphagia or odynophagia PFS Medical History Family history of diabetes mellitus (DM) Elevated fasting glucose Colon polyps Chronic GERD Gastroesophageal reflux disease Surgical History History of esophagogastroduodenoscopy (EGD) Hx of endoscopy History of colonoscopy History of hysterectomy History of section Family History Father Hx of type 1 diabetes mellitus Hx of hiatal hernia Hx of congestive heart failure Mother HTN (hypertension) Social History Household Members: Spouse Housing: House Alcohol intake: current Alcohol intake frequency: does not drink Patient Tobacco Use Status: Former Tobacco user e-Cigarette/Vaping Use: Never Used Second Hand Smoke Exposure: Yes service: No Current occupational status: employed Sexual orientation: Straight/Heterosexual Gender identity: Female Cognitive needs: No Hearing needs: No Vision needs: Yes (Glasses) Female Reproductive History Menstrual Age of Menarche: 16 Review of Systems Const Denies weight gain and Denies weight loss ENT Reports no additional complaints, Denies dysphagia and Denies odynophagia Card Reports no additional complaints Resp Reports no additional complaints GI Denies abdominal pain, Denies belching, Denies melena, Denies bloating, Denies change in bowel habits, Denies dysphagia, Denies excessive flatus, Denies dyspepsia, Reports heartburn, Denies diarrhea, Denies loose stools, Denies nausea, Denies odynophagia and Denies vomiting Reports no additional complaints Musc Reports no additional complaints Neuro Reports no additional complaints Psych Reports no additional complaints Endo Reports no additional complaints Physical Exam Vital Signs: Last Vital Signs Pulse 76 05/18/24 10:15 BP 136/72 05/18/24 10:15 Pulse Ox 97 05/18/24 10:15 Oxygen Delivery Method Room Air 05/18/24 10:15 BMI result Body Mass Index 27.6 Const General: healthy appearing, no acute distress and well developed Nutritional Appearance: well nourished Orientation/consciousness: patient oriented x3 Resp Effort & Inspection: normal respiratory effort, able to speak in complete sentences, no tracheal deviation and symmetric chest movement Auscultation: clear to auscultation bilaterally Cardio Rate: regular rate GI Inspection: Yes normal to inspection and No distended Palpation (GI): Soft to palpation, not firm, nontender and No hepatosplenomegaly present Auscultation: normal bowel sounds General: Yes no CVA tenderness Back/Spine/Pelvis Back: no CVA tenderness Skin General skin exam: elasticity normal, turgor normal and dry skin Neuro General: patient oriented x3 Psych Appearance: grossly normal Mental Status: mental status grossly normal Assessment & Plan Assessment & Plan (1) Chronic GERD: Code(s): K21.9 - Gastro-esophageal reflux disease without esophagitis Category: Medical (2) IBS (irritable bowel syndrome): Code(s): K58.9 - Irritable bowel syndrome, unspecified Qualifiers: Irritable bowel syndrome type: with constipation Qualified Code(s): K58.1 - Irritable bowel syndrome with constipation (3) Constipation: Code(s): K59.00 - Constipation, unspecified Qualifiers: Constipation type: slow transit constipation Qualified Code(s): K59.01 - Slow transit constipation Plan Will stop pantoprazole for now and start patient on Nexium. Continue avoiding dietary triggers and late night snacking. Patient can start taking probiotics to help her. She can also increase fiber in her diet. Increase fluid intake and activity to promote better bowel motility. Avoid dietary triggers and late night snacking. Staying upright for minimum 3 hours after meals discussed with patient. Patient will call us in 2 weeks if she will continue to have the same symptoms. May use famotidine at night time. Patient will follow-up in 6 months, sooner on as needed basis. She is agreeable to this plan and verbalizes understanding of instructions. She was given the opportunity to ask questions and all questions answered. Thank you for allowing me to participate in Medications: New esomeprazole magnesium (Nexium 24HR) 20 mg PO DAILY 30 tabs 2RF esomeprazole magnesium (Nexium 24HR) 20 mg PO DAILY 30 tabs 2RF Discontinued pantoprazole Discontinued Reason: Doctor's Order 20 mg PO DAILY 90 tabs 1RF Coding Level of Care Code Est Pt Level 4 (97343) Complex EM visit Add On G2211 Diagnoses Chronic GERD K21.9 Irritable bowel syndrome with constipation K58.1 Irritable bowel syndrome type: with constipation Slow transit constipation K59.01 Constipation type: slow transit constipation Time Spent (min) 35 Comment 25 minutes spent with patient and additional 10 minutes spent reviewing her records
== END 2024-05-18 10:52 | disposition home or self-care (01) ==
PROVIDERS: PCP Internal Medicine; Visit Provider Nurse Practitioner Family
DX: K21.9 Gastro-esophageal reflux disease without esophagitis (principal); K58.1 Irritable bowel syndrome with constipation; K59.01 Slow transit constipation
CPT/HCPCS: 99214

== ENCOUNTER → 2024-05-18 09:58 | Outpatient (BNVA) | payer BC, SELFPAY | PROVIDERS: PCP Internal Medicine; Visit Provider Nurse Practitioner Family ==

== ENCOUNTER 2024-05-21 07:22 | Outpatient (REF) | payer BC, SELFPAY ==
[2024-05-21 07:40] LABS: MANUAL DIFF FLAG NO
[2024-05-21 08:02] LABS: Basophils Percent Auto 0.4 % (0-2); Eosinophils Absolute Auto 0.2 X10*3/uL (0.0-0.4); Hematocrit 38.9 % (37.0-47.0); Hemoglobin 12.8 g/dl (12.0-16.0); Imm Gran Abs Auto 0.02 X10*3/uL (0.00-0.03); Imm Gran Pct Auto 0.4 % (0.0-0.4); Lymphocytes Absolute Auto 2.1 X10*3/uL (1.2-4.9); Lymphocytes Percent Auto 37.9 % (20-40); Mean Corpuscular HGB Conc 32.9 g/dl (31.0-35.0); Mean Corpuscular Volume 91.1 fL (80.0-98.0); Mean Platelet Volume 11.3 fL (9.4-12.3); Monocytes Absolute Auto 0.4 X10*3/uL (0.1-1.2); Monocytes Percent Auto 7.5 % (2-11); Neutrophils Absolute Auto 2.8 x10*3/uL (2.0-8.3); Neutrophils Percent Auto 50.8 % (45-73); Platelet Count 264 X10*3/uL (160-400); Red Blood Count 4.27 X10*6/uL (4.20-5.50); Red Cell Distribution Width 12.6 % (11.0-16.0); White Blood Count 5.6 X10*3/uL (4.8-10.8)
[2024-05-21 08:17] LABS: Estimated Average Glucose 117 mg/dL; Hemoglobin A1C 118.7075 umol/L; Hemoglobin A1c % 5.7 % (<6.0); Total Hemoglobin (HGBA1C) 3020.9438 umol/L
[2024-05-21 08:21] LABS: Alanine Aminotransferase 37 U/L (0-31); Albumin Level 4.6 g/dL (3.5-5.0); Alkaline Phosphatase 104 U/L (39-117); Anion Gap 12 (12-20); Aspartate Amino Transferase 25 U/L (5-31); Bilirubin Total 0.5 mg/dL (0.0-1.0); Blood Urea Nitrogen 14 mg/dL (9-16); Calcium 9.7 mg/dL (8.4-10.2); Carbon Dioxide 27 mmol/L (22-29); Chloride 107 mmol/L (96-108); Cholesterol 167 mg/dL (<200); Estimated Glomerular Filt Rate > 60; Glucose Fasting 115 mg/dL (60-99); HDL Cholesterol 51 mg/dL (>40); LDL Cholesterol Calculated 95 mg/dL (<100); Potassium 3.9 mmol/L (3.3-5.1); Sodium 142 mmol/L (135-145); Total Protein 7.9 g/dL (6.5-8.0); Triglycerides 107 mg/dL (<150)
[2024-05-21 08:39] LABS: Thyroid Stimulating Hormone 4.43 uIU/mL (0.32-4.0)
== END 2024-05-21 07:23 | disposition home or self-care (01) ==
LOC: HO.LAB 07:22
PROVIDERS: PCP Internal Medicine; Referring Provider Otolaryngology; Visit Provider Internal Medicine
DX: Z13.9 Encounter for screening, unspecified (principal); Z13.29 Encounter for screening for other suspected endocrine disorder; Z13.0 Encounter for screening for diseases of the blood and blood-forming organs and certain disorders involving the immune mechanism; Z13.220 Encounter for screening for lipoid disorders; R73.9 Hyperglycemia, unspecified; R22.1 Localized swelling, mass and lump, neck
CPT/HCPCS: 36415; 80053; 80061; 83036; 84443; 85025

== ENCOUNTER 2024-09-21 12:39 | Outpatient (REF) | payer BC, SELFPAY | END 2024-09-21 12:40 | disposition home or self-care (01) | LOC: HO.MAMMO 12:39 | PROVIDERS: PCP Internal Medicine; Visit Provider Internal Medicine | DX: Z12.31 Encounter for screening mammogram for malignant neoplasm of breast (principal) | CPT/HCPCS: 77063; 77067 ==

== ENCOUNTER → 2024-09-21 12:45 | Outpatient (BNV) | payer BC, SELFPAY | PROVIDERS: PCP Internal Medicine; Visit Provider Internal Medicine | DX: Z12.31 Encounter for screening mammogram for malignant neoplasm of breast (principal) | CPT/HCPCS: 77063; 77067 ==

== ENCOUNTER 2024-11-16 12:25 | Outpatient (AMB) | payer BC, SELFPAY ==
--- NOTE | 2024-11-16 12:32 | A.OFFPC_ITS ---
Vital Signs 11/16/24 12:34 Height 5 ft 1 in Weight 141 lb BMI 26.6 BP 122/70 Blood Pressure Location Lt brachial Position Sitting Intake Visit Reasons: [facility] Dr Cardenas Advance Scout Required: No Accompanied by: Self / Same As Patient Allergies oxycodone [Percocet] Allergy (Intermediate, Verified 11/16/24 12:46) nightmares alendronate sodium Adverse Reaction (Intermediate, Verified 11/16/24 12:52) pill induced esophagitis Medication List - Last Reconciled 11/16/24 by Cleo Fine MD cholecalciferol (vitamin D3) 50 mcg PO DAILY famotidine (Pepcid) 20 mg PO BEDTIME lorazepam 1 mg PO Q6-8H PRN magnesium 250 mg PO BID Tobacco use date assessed: 05/15/24 Dental Screening Dental Screen Date: 05/15/24 HPI HPI Comments History of Present Illness Details The patient is a 64-year-old female presenting with osteoporosis management concerns. She was diagnosed with osteoporosis in 2015 and experienced complications with gastrointestinal distress due to an oral medication, leading her to discontinue its use. Her most recent DEXA scan from July 2023 showed a score of -2.6. Current management strategies include weight training and the use of dietary supplements like Celtic salt. TSH is elevated and this will be repeated. The patient has a history of GERD, for which she performed numerous endoscopies. She transitioned from using PPIs to famotidine and attempted to reduce her dosage, which resulted in symptom recurrence. Additionally, she manages former severe vitamin D deficiency with daily supplementation, and her thyroid levels have shown consistent elevation over recent years. The patient?s fasting glucose levels were indicative of prediabetes, although her A1c remains normal. Furthermore, she experiences vaginal atrophy, which has affected her intercourse activities. She feels hesitant about hormone therapy but is considering alternatives like estradiol cream. [facility] Medical History (Updated 11/16/24 @ 14:24 by Cleo Fine MD) Family history of diabetes mellitus (DM) Elevated fasting glucose Colon polyps Chronic GERD Gastroesophageal reflux disease Surgical History History of esophagogastroduodenoscopy (EGD) Hx of endoscopy History of colonoscopy History of hysterectomy History of section Family History Father Hx of type 1 diabetes mellitus Hx of hiatal hernia Hx of congestive heart failure Mother HTN (hypertension) Social History Household Members: Spouse Housing: House Alcohol intake: current Alcohol intake frequency: does not drink Patient Tobacco Use Status: Former Tobacco user e-Cigarette/Vaping Use: Never Used Second Hand Smoke Exposure: Yes service: No Current occupational status: employed Sexual orientation: Straight/Heterosexual Gender identity: Female Cognitive needs: No Hearing needs: No Vision needs: Yes (Glasses) Female Reproductive History Menstrual Age of Menarche: 16 Questionnaire PHQ-9 Over the last 2 weeks, how often have you been bothered by any of the following problems? 1. Little interest or pleasure in doing things: not at all 2. Feeling down, depressed, or hopeless: not at all 3. Trouble falling or staying asleep, or sleeping too much: not at all 4. Feeling tired or having little energy: not at all 5. Poor appetite or overeating: not at all 6. Feeling bad about yourself - or that you are a failure or have let yourself or your family down: not at all 7. Trouble concentrating on things, such as reading the newspaper or watching television: not at all 8. Moving or speaking so slowly that other people could have noticed. Or the opposite - being so fidgety or restless that you have been moving around a lot more than usual: not at all 9. Thoughts that you would be better off or of hurting yourself in some way: not at all Total score: 0 Depression Screening Interpretation: Negative Depression Screening Done: Yes 73593 - PHQ-9 Billing: Yes Source: Developed by Drs. Lenny Gonzalez, Pratima Campa, Billy Coleman and colleagues, with an educational cayden from [employer]. Thrive Questionnaire Date Thrive assessed: 11/16/24 I am a: Patient What is your living situation today?: I have a steady place to live Within the past 12 months, did the food you bought not last and you didn't have the money to get more?: Never true Within the past 12 months, did you worry whether your food would run out before you got money to buy more?: Never true Do you have trouble paying for medicines?: No Do you have trouble getting transportation to medical appointments?: No Do you have trouble paying your heating and electricity bill?: No Do you have trouble taking care of your child, family member or friend?: No Do you have trouble with day-to-day activities such as bathing, preparing meals, shopping, managing finances, etc.?: No Are you currently unemployed and looking for a job?: No Are you interested in more education?: No Please select the resources that you would like help with: None Currently or been in a relationship where the following occur: No concerns reported THRIVE Score: 0 AUDIT C Alcohol Use Questionnaire (AUDIT-C) 1. How often do you have a drink containing alcohol?: Never Total Score: 0 Score Reviewed/Action Taken: No WILLIAM-7 AMB Questionnaire WILLIAM-7 Date WILLIAM - 7 assessed: 11/16/24 Feeling nervous, anxious, or on edge: 0 = Not at all Not being able to stop or control worryin = Not at all Worrying too much about different things: 0 = Not at all Trouble relaxin = Not at all Being so restless that it is hard to sit still: 0 = Not at all Becoming easily annoyed or irritable: 0 = Not at all Feeling afraid as if something awful might happen: 0 = Not at all Total WILLIAM-7 score (0-4 normal; 5-9 mild; 10-14 moderate; 15-21 severe): 0 Source: Developed by Drs. Lenny Gonzalez, Pratima Campa, Billy Coleman and colleagues, with an educational cayden from [employer]. WILLIAM-7 Assessment Billing WILLIAM-7 Assessment Tool: WILLIAM-7 Assessment 65070 Review of Systems Const All systems reviewed & are unremarkable except as noted in HPI and below Card Denies chest pain at rest, Denies chest pain with activity, Denies edema, Denies irregular heart rhythm, Denies claudication, Denies dyspnea, Denies dyspnea on exertion, Denies orthopnea, Denies paroxysmal nocturnal dyspnea and Denies slow heart rate Resp Denies cough, Denies dyspnea and Denies dyspnea on exertion Musc Denies atrophy, Denies deformity and Denies limited range of motion Physical exam (Primary Care) Vital Signs: Last Vital Signs BP 122/70 11/16/24 12:34 BMI result Body Mass Index 26.6 Tobacco/Smoking Status: Tobacco use Status Tobacco use date assessed 05/15/24 11/16/24 12:37 Patient Tobacco Use Status Former Tobacco user 11/16/24 12:37 e-Cigarette/Vaping Use Never Used 11/16/24 12:37 PHQ-9: PHQ-9 Score PHQ-9: Total score 0 11/16/24 13:22 Depression Screening Interpretation: Negative Thrive Assessment: Date of Thrive Assessment Date Thrive assessed 11/16/24 11/16/24 12:37 Currently or been in a relationship where the following occur: No concerns reported Resp Effort & Inspection: normal respiratory effort Auscultation: clear to auscultation bilaterally Cardio Jugular venous distension: no JVD Rate: regular rate Rhythm: regular rhythm Heart sounds: S1 normal heart sound present and S2 normal heart sound present Skin General skin exam: no rashes or lesions noted Extrem General: Yes full ROM Immunizations Boostrix Tdap 2.5 Lf unit-8 mcg-5 Lf/0.5 mL intramuscular syringe Performing Provider: Cleo Fine MD Performing Location: [facility] Administered by: MARKO Bosch on 11/16/24 13:08 Dose Route Admin Location Dispensed Lot Number Expiration Date [facility] Boat Buffer Plastic 0.5 mL IM Right Deltoid 0.5 mL [id number] 02/06/27 30843-815-80 [employer] VIS Given Date VIS Provided VIS Publication Date 11/16/24 Single Vaccine 24 Eligibility Eligibility Date Funding Source Not [facility] Eligible 11/16/24 Private Coding Level of Care Code Est Pt Level 4 (99584) Complex EM visit Add On G2211 Diagnoses Age-related osteoporosis without current pathological fracture M81.0 Osteoporosis type: age-related Presence of current pathological fracture: without current pathological fracture Impaired glucose tolerance R73.02 TSH elevation R79.89 Chronic GERD K21.9 Vaginal dryness N89.8 Additional Codes WILLIAM-7 Assessment Billing - WILLIAM-7 Assessment Tool: WILLIAM-7 Assessment 16880 ([id number]) PHQ-9 - 21231 - PHQ-9 Billing: Yes ([id number]) Time Spent (min) 23 Assessment & Plan Assessment & Plan (1) Osteoporosis: Code(s): M81.0 - Age-related osteoporosis without current pathological fracture Category: Medical Qualifiers: Osteoporosis type: age-related Presence of current pathological fracture: without current pathological fracture Qualified Code(s): M81.0 - Age- related osteoporosis without current pathological fracture (2) Impaired glucose tolerance: Code(s): R73.02 - Impaired glucose tolerance (oral) Category: Medical (3) TSH elevation: Code(s): R79.89 - Other specified abnormal findings of blood chemistry Category: Medical (4) Chronic GERD: Code(s): K21.9 - Gastro-esophageal reflux disease without esophagitis Category: Medical (5) Vaginal dryness: Code(s): N89.8 - Other specified noninflammatory disorders of vagina Category: Medical Plan For osteoporosis management, the patient will continue with weight training and dietary modifications. A referral to endocrinology or rheumatology will explore the possibility of different medications. GERD will be managed with the current famotidine regimen, noting symptom exacerbation at reduced doses. The patient's glucose and thyroid panel will be repeated due to prior abnormalities, and vitamin D supplementation will continue. Vaginal atrophy will be approached through an estradiol cream regimen, administered as needed. Vaccinations for Td booster and shingles are advised, available at designated pharmacy locations. Patient was informed and verbally consented to the use of an ambient scribe for clinic note documentation during this visit. We explored various management options for osteoporosis, noting prior negative experiences with medication and current weight training regimen. Endocrinology or rheumatology referral was considered for alternative treatments. GERD sy mptoms require ongoing famotidine therapy due to recurrence at reduced dosing. The necessity of repetitive glucose and thyroid testing was recognized. The patient's vitamin D should be maintained to prevent recurrence of prior deficiency. Estradiol cream was discussed for managing vaginal atrophy, emphasizing limited use to mitigate risks associated with hormone exposure. Compliance with routine vaccinations was advised with specific emphasis given to Td booster and shingles availability at local pharmacies. Orders: Orders Vitamin D 25-OH Total Today E55.9 - Vitamin D deficiency, unspecified Thyroglobulin Antibodies Today R79.89 - Other specified abnormal findings of blood chemistry TDaP Immunization Today Z23 - Encounter for immunization Comprehensive [place]. Panel Fast Today R73.02 - Impaired glucose tolerance (oral) Thyroid Stimulating Hormone Today R79.89 - Other specified abnormal findings of blood chemistry Thyroid Peroxidase Antibodies Today R79.89 - Other specified abnormal findings of blood chemistry Referrals Endocrinology Referral M81.0 - Age-related osteoporosis without current pathological fracture Medications: New estradiol 0.01%(0.1mg/gram) (Estrace) for 14 days 1 appful vaginal DAILY 30 days PRN 42.5 grams 1RF vaginal dryness estradiol 0.01%(0.1mg/gram) (Estrace) for 14 days 1 appful vaginal DAILY PRN 42.5 grams 1RF vaginal dryness 30 days Patient Instructions: - Continue weight training exercises and calcium/vitamin D supplementation. - Use estradiol cream as needed for vaginal dryness. - Remain on famotidine for GERD management. - Report any new or worsening symptoms. - Schedule vaccinations for Td booster and shingles at a pharmacy. - Follow-up for repeat glucose and thyroid testing as scheduled. - Maintain current vitamin D supplementation regimen.
[2024-11-16 12:34] VITALS: BP 122/70; BMI 26.6
== END 2024-11-16 13:14 | disposition home or self-care (01) ==
LOC: HO.HMCH 12:25
PROVIDERS: PCP Internal Medicine; Visit Provider Internal Medicine
DX: M81.0 Age-related osteoporosis without current pathological fracture (principal); R73.02 Impaired glucose tolerance (oral); R79.89 Other specified abnormal findings of blood chemistry; K21.9 Gastro-esophageal reflux disease without esophagitis; N89.8 Other specified noninflammatory disorders of vagina; Z23 Encounter for immunization

== ENCOUNTER → 2024-11-16 12:25 | Outpatient (BNVA) | payer BC, SELFPAY | PROVIDERS: PCP Internal Medicine; Visit Provider Internal Medicine | DX: M81.0 Age-related osteoporosis without current pathological fracture (principal); Z23 Encounter for immunization; R73.02 Impaired glucose tolerance (oral); R79.89 Other specified abnormal findings of blood chemistry; K21.9 Gastro-esophageal reflux disease without esophagitis; N89.8 Other specified noninflammatory disorders of vagina; Z13.31 Encounter for screening for depression; Z13.30 Encounter for screening examination for mental health and behavioral disorders, unspecified | CPT/HCPCS: 90471; 90715; 96127 ==

== ENCOUNTER 2024-11-26 09:29 | Outpatient (REF) | payer BC, SELFPAY ==
--- OUTSIDE RECORDS SUMMARY | 2024-11-26 10:17 | XMS_ITS | Data Portability ---
Author Organization [place] - [facility], Allergy Address [address] [place] [id number] Care Team Providers Care Dental Hygiene Professor Name Role Phone COURTNEYJIMENEZ CERDA EVELYN Referring Provider [phone] VANESSA CORRAL Primary Care Provider Assessment Encounter Date Assessment Date Assessment LastModified by Organization Details LastModified Time 07/10/2024 07/10/2024 Patient has a lesion of the parotid salivary gland. We have discussed treatment options including observation as well as surgical intervention to remove the lesion. Surgery is performed under general anesthesia at either [facility] or [facility]. The surgery is typically booked for approximately 3 hours but can take longer. Patient is expected to stay overnight and would likely be discharged the following morning. During the surgery special instrumentation to identify and protect the facial nerve will be used. Despite our best efforts there are risks to the surgery including temporary or permanent facial nerve paralysis. Gustatory sweating, first bite syndrome are also possible. I have outlined the surgical incision so the patient understands the size and location of the scar. As the incision is carried through the skin it is expected there will be some area of paresthesia that may improve somewhat over time. There is a risk of postoperative bleeding or sialocele which may require drainage. To help minimize this risk a surgical drain will be placed and removed in the office several days after surgery. I typically do not send the patient home with antibiotics but if they develop signs of infection they will contact the office for treatment. Previous tissue sampling with needle aspiration biopsy is helpful when planning the extent of surgery. Ultimately final pathology will determine if there is any additional treatment that is necessary such as further surgery or consultation with other parts of the care team such as radiation and medical oncology [email or web address] Not available 07/10/2024 14:43:41 Plan of Treatment Reminders Order Date Submit Date Provider Last Modified By Organization Details Last Modified Time Details Appointments Establish ed 15 2024 09:00A M SELINA VELASQUEZ MD Not available Not available Not available Lab None recorded. Referral None recorded. Procedures None recorded. Surgeries parotidec irwin (SURG) 2024 025 [email or web address] Not available 07/10/2024 15:08:26 Imaging None recorded. Medication Orders None recorded. Patient TargetsNo targets recorded. Patient InstructionsNo instructions recorded. Reason for Referral None Reported. Results Created Date Observation Date Name Description Value Unit Range Abnormal Flag Note LastModifiedBy Organization Detail LastModifiedTime 07/10/1905/27/2024 CT, neck, soft tissu e, w/ contr ast No observ ation record ed. [email or web address] Not Available 06/12 14:56:15 Result Notes None recorded. 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 14:42:54 Problem Notes None recorded. Medical Equipment None Reported. Allergies No known drug allergies Medications Name Sig Start Date Stop Date Status Note LastModified by Organization Details LastModified Time pantoprazole 20 mg tablet,delay ed release TAKE ONE TABLET BY MOUTH EVERY DAY 07/10 completed Not Available Not Available Not Available famotidine 20 mg tablet TAKE ONE TABLET BY MOUTH DAILY AT BEDTIME 07/10 completed Not Available Not Available Not Available lorazepam 1 mg tablet TAKE 1 TABLET BY MOUTH EVERY 6 TO 8 HOURS NEEDED FOR ANXIETY 07/10 completed Not Available Not Available Not Available esomeprazole magnesium 20 mg capsule,melisa yed release Take 1 capsule every day by oral route. active Not Available Not Available No t Available cholecalcife rol (vitamin D3) 50 mcg (2,000 unit) capsule TAKE ONE CAPSULE BY MOUTH DAILY active Not Available Not Available No t Available Estroven Complete Menopause Relief 4 mg tablet Take by oral route. active Not Available Not Available No t Available Vitals Date Recorded Body height Body mass index (BMI) Body weight Provider Name and Address Organization Details Last Updated DateTime 07/10/2024 156.21 cm 26.6 kg/m2 35635.71 g Jenn Shama [place] - [facility] 07/10/2024 14:23:05 Social History None recorded. Functional Status None recorded. Mental Status None recorded. Family History Nothing Reported. Medical History No medical history recorded. Gynecological HistoryNo gynecological history recorded. 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 Patient would like to consider her options and may follow-up in 6 months for conservati ve observatio n if she decides not to pursue surgery Health Concerns Section Related Observation LastModified by Organization Detai ls LastModified Time None Recorded Concern Status LastModified by Organization Details LastModified Time None Recorded Advance Directives Directive None Recorded Payers Insurance Date Sequence Insurance Name Policy Number Policy Huang Covered Member ID Huang Member ID Guarantor Name 11/20/2024 1 [facility] [place] [id number] Caitlin Cortes [id number] Caitlin Cortes Notes Date Note Type Note Provider Name and Address Organization Details Recorded Time 07/10/2024 text/html right parotid massbecame aware of the mass about fall 2023no pain, +growth over timeno prior surgery in that area 05/27/2024 CT neck with contrast at [facility] mm lipoma adjacent to tail of right parotid SELINA VELASQUEZ MD [address] [place] [address], [place], [phone], [place] - [facility] 07/10/2024 14:52:27 OBGyn Episode No OBEpisode recorded.
[2024-11-26 11:51] LABS: Alanine Aminotransferase 26 U/L (0-31); Albumin Level 4.7 g/dL (3.5-5.0); Alkaline Phosphatase 103 U/L (39-117); Anion Gap 10 (12-20); Aspartate Amino Transferase 22 U/L (5-31); Bilirubin Total 0.6 mg/dL (0.0-1.0); Blood Urea Nitrogen 9 mg/dL (9-16); Calcium 9.6 mg/dL (8.4-10.2); Carbon Dioxide 28 mmol/L (22-29); Chloride 107 mmol/L (96-108); Estimated Glomerular Filt Rate > 60; Glucose Fasting 101 mg/dL (60-99); Potassium 3.9 mmol/L (3.3-5.1); Sodium 141 mmol/L (135-145); Thyroid Stimulating Hormone 3.07 uIU/mL (0.32-4.0); Total Protein 7.7 g/dL (6.5-8.0); Vitamin D 25-OH Total 42.3 ng/mL (>30)
[2024-11-27 19:44] LABS: Thyroglobulin Antibodies <1 IU/mL (< or = 1); Thyroid Peroxidase Antibodies <1 IU/mL (<9)
== END 2024-11-26 09:30 | disposition home or self-care (01) ==
LOC: HO.LAB 09:29
PROVIDERS: PCP Internal Medicine; Visit Provider Internal Medicine
DX: E55.9 Vitamin D deficiency, unspecified (principal); R73.02 Impaired glucose tolerance (oral); R79.89 Other specified abnormal findings of blood chemistry
CPT/HCPCS: 36415; 80053; 82306; 84443; 86376; 86800

== ENCOUNTER 2024-12-10 10:55 | Outpatient (AMB) | payer BC, SELFPAY ==
[2024-12-10 10:57] VITALS: BP 104/64; PULSE 77; O2SAT 96; BMI 26.8
--- NOTE | 2024-12-10 10:57 | A.OFFVIS_ITS ---
Vital Signs 12/10/24 10:57 Height 5 ft 1 in Weight 141 lb 12.116 oz BMI 26.8 BP 104/64 Blood Pressure Location Lt brachial Position Sitting Pulse 77 Pulse Source Pulse Oximeter Pulse Oximetry (%) 96 Oxygen Delivery Method Room Air Intake Visit Reasons: osteoporosis without current pathological fracture Intake Note: Patient present today for osteoporosis without current pathological fracture. Slubber Tender Required: No Accompanied by: Self / Same As Patient Allergies oxycodone (Percocet) Allergy (Intermediate, Verified 12/10/24 11:01) nightmares alendronate sodium Adverse Reaction (Intermediate, Verified 12/10/24 11:01) pill induced esophagitis Medication List - Last Reconciled 12/10/24 by Lenny Arias MD cholecalciferol (vitamin D3) 50 mcg PO DAILY estradiol 0.01%(0.1mg/gram) (Estrace) 1 appful vaginal DAILY PRN 30 days famotidine (Pepcid) 20 mg PO BEDTIME lorazepam 1 mg PO Q6-8H PRN magnesium 250 mg PO BID HPI Comments Details: The patient is a 64-year-old female presenting with osteoporosis and menopausal symptoms. Osteoporosis was diagnosed in 2015, and the patient was treated with alendronate for five years, which she tolerated well despite gastrointestinal side effects such as esophagitis. She has not experienced any fractures and has a family history of osteoporosis on her father's side and osteopenia in her mother. The patient has been advised to maintain a calcium intake of 1200 mg daily, primarily through diet, supplemented with calcium citrate if necessary. Menopausal symptoms include hot flashes, which have persisted despite the absence of menstruation due to a hysterectomy performed in 1994, with ovaries preserved. The patient has considered using vaginal estrogen but has concerns about potential side effects. Thyroid dysfunction is suspected due to elevated TSH levels, although the patient has not been placed on medication as the T4 levels remain normal. There is no family history of thyroid issues, and the patient denies any significant symptoms related to thyroid dysfunction. The patient has a history of gastroesophageal reflux disease, previously managed with proton pump inhibitors, now taking Pepcid. She denies any current use of blood thinners or steroids. Prediabetes is a concern due to fasting blood glucose levels on the higher end of normal, though the patient is not currently on medication for this condition. She is seeing a code enforcement inspector and is advised to monitor her diet and maintain regular exercise to manage her weight and blood glucose levels. First diagnosed in 2015. Received treatment in the past with alendronate , from 2015 to 2020. Tolerated treatment but inflammed esophagus and stomach No history of pathologic fracture or ONJ. Has several servings of dietary calcium per day in the form of cheese, bok ella, broccoli . Not Takes Calcium supplement . Takes 2000 IU of Vitamin D daily. The patient consumes a diet that includes [place] cheese, broccoli, and cereal, with an emphasis on achieving a daily calcium intake of 1200 mg. She does not currently take calcium supplements but is advised to use calcium citrate if dietary intake is insufficient. Took PPI, -anticoagulant, -antiepileptic or -glucocorticoid medication. Does weight bearing exercise 3 days per week in the form of weight bearing . - Weightbearing exercise: Engages in gym activities with a head animal trainer once a week, aiming for two additional sessions weekly. 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 UTD on dental cleanings and sees dentist every 6 months. No planned upcoming dental work or extractions. No tabacco use or heavy ETOH use DXA dated 07/30/23 : FINDINGS: LEFT FEMUR, NECK: Current: BMD 0.747 g/cm2, Z-score -0.8, T-score -2.1, osteopenia. Prior: BMD 0.638 g/cm2. Baseline: BMD 0.761 g/cm2. LEFT FEMUR, TOTAL: Current: BMD 0.768 g/cm2, Z-score -0.9, T-score -1.9, osteopenia, 12.4% increase from previous, 6.6% decrease from baseline (<5% change is not significant). Prior: BMD 0.683 g/cm2. Baseline: BMD 0.822 g/cm2. AP SPINE L1-L4: Current: BMD 0.868 g/cm2, Z-score -1.3, T-score -2.6, osteoporosis, 4.6% decrease from previous, 7.7% decrease from baseline (<5% change is not significant). Prior: BMD 0.910 g/cm2. Baseline: BMD 0.940 g/cm2. IDENTIFIED RISK FACTORS: Early menopause, hysterectomy, osteoporosis, secondary osteoporosis. HISTORY OF FRACTURE: None listed. MEDICATIONS: Vitamin D. MM/XR DEXA axial skeleton IMPRESSION: 1. DIAGNOSIS: Osteoporosis based on the lowest T-score value of -2.6 in the lumbar spine applying World Health Organization criteria. Labs:- Labs: TSH elevated, T4 normal, indicating possible subclinical hypothyroidism. - Labs: Fasting blood glucose levels on the higher end of normal, indicating prediabetes. [facility] Medical History Family history of diabetes mellitus (DM) Elevated fasting glucose Colon polyps Chronic GERD Gastroesophageal reflux disease Surgical History History of esophagogastroduodenoscopy (EGD) Hx of endoscopy History of colonoscopy History of hysterectomy History of section Family History Father Hx of type 1 diabetes mellitus Hx of hiatal hernia Hx of congestive heart failure Mother HTN (hypertension) Social History Household Members: Spouse Housing: House Alcohol intake: current Alcohol intake frequency: does not drink Patient Tobacco Use Status: Former Tobacco user e-Cigarette/Vaping Use: Never Used Second Hand Smoke Exposure: Yes service: No Current occupational status: employed Sexual orientation: Straight/Heterosexual Gender identity: Female Cognitive needs: No Hearing needs: No Vision needs: Yes (Glasses) Female Reproductive History Menstrual Age of Menarche: 16 Physical Exam Vital Signs: Last Vital Signs Pulse 77 12/10/24 10:57 BP 104/64 12/10/24 10:57 Pulse Ox 96 12/10/24 10:57 Oxygen Delivery Method Room Air 12/10/24 10:57 BMI result Body Mass Index 26.8 There are no Cushingoid features. Absence of blue sclera. Absence of kyphosis. Thyroid gland is of nl size and weighs 15 gms. There are no thyroid nodules palpated. Lungs CTA. Heart S1 S2 Reg R/R Abdominal exam benign. Muscle strength 5/5 . Examination of spine reveals absence of tenderness on palpation Assessment & Plan Assessment & Plan (1) Osteoporosis: Code(s): M81.0 - Age-related osteoporosis without current pathological fracture Category: Medical Qualifiers: Osteoporosis type: age-related Presence of current pathological fracture: without current pathological fracture Qualified Code(s): M81.0 - Age- related osteoporosis without current pathological fracture Plan: This is a 64-year-old female with a history of osteoporosis and partial secondary workup. She had previously taken alendronate Plan is to complete the secondary workup by checking a phosphorus level, 24 hour urine for calcium and creatinine, urine immunofixation. We will ensure 1200 mg of calcium and continued vitamin-D supplementation. Assuming secondary workup is negative, we will check urine NTX .. We also discussed possible use of transdermal estrogen considering patient has a history of hysterectomy and continues to suffer from night sweats and perimenopausal symptoms. I will message her incident commander physician about this. 1. Osteoporosis Continue calcium and vitamin D supplementation. Perform a 24-hour urine calcium test to evaluate calcium excretion. 2. Menopausal symptoms Consider transdermal estrogen therapy for symptom relief and bone health. Refer to gynecology for further management. 3. Thyroid dysfunction Monitor thyroid function tests regularly. No immediate treatment required. 5. Prediabetes Maintain dietary management and exercise. Monitor blood glucose levels and consult with a code enforcement inspector. During the visit, we discussed the management of osteoporosis, emphasizing the importance of calcium and vitamin D supplementation. We explored the potential benefits of transdermal estrogen therapy for menopausal symptoms and bone health, considering the patient's concerns about side effects. - Continue taking vitamin D as prescribed. - Ensure daily calcium intake of 1200 mg, using supplements if necessary. - Maintain regular exercise, aiming for three sessions per week. - Monitor blood glucose levels and follow dietary recommendations from your code enforcement inspector. - Schedule a follow-up appointment with your senior clinician to discuss potential estrogen therapy. - Return for a follow-up visit in four months. The patient had an opportunity to ask questions regarding treatment plan. The patient expressed understanding and agreement with the above treatment plan. Patient was informed and verbally consented to the use of an ambient scribe for clinic note documentation during this visit. Orders: Orders Phosphorus Today M81.0 - Age-related osteoporosis without current pathological fracture Immunofixation, Random Urine Today M81.0 - Age-related osteoporosis without current pathological fracture Calcium, 24 Hr Ur Today M81.0 - Age-related osteoporosis without current pathological fracture Creatinine, 24 Hr Group Today M81.0 - Age-related osteoporosis without current pathological fracture Collagen Crosslinks NTX Today M81.0 - Age-related osteoporosis without current pathological fracture Coding Level of Care Code New Pt Level 4 (56393) Diagnoses Age-related osteoporosis without current pathological fracture M81.0 Osteoporosis type: age-related Presence of current pathological fracture: without current pathological fracture
--- OUTSIDE RECORDS SUMMARY | 2024-12-10 11:45 | XMS_ITS | Data Portability ---
Author Organization [place] - [facility], Allergy Address [address] [address] Care Team Providers Care Credit Risk Specialist Name Role Phone COURTNEYJIMENEZ CERDA EVELYN Referring Provider VANESSA CORRAL Primary Care Provider Assessment Encounter Date Assessment Date Assessment LastModified by Organization Details LastModified Time 07/10/2024 07/10/2024 Patient has a lesion of the parotid salivary gland. We have discussed treatment options including observation as well as surgical intervention to remove the lesion. Surgery is performed under general anesthesia at either [facility] or [facility]. The surgery is typically booked for approximately [...] recorded. Surgeries parotidec irwin (SURG) 2024 025 [id number] Not available 07/10/2024 15:08:26 Imaging None recorded. 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 Medical Equipment [...] Updated DateTime 07/10/2024 156.21 cm 26.6 kg/m2 55211.71 g Jenn Shama [place] - [facility] 07/10/2024 14:23:05 Social History None recorded. Functional Status None recorded. Mental Status None recorded. Family History Nothing Reported. Medical History No medical history recorded. Gynecological HistoryNo gynecological history recorded. 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 [...] Huang Member ID Guarantor Name 11/20/2024 1 [facility] ([facility] [id number] Caitlin Cortes [id number] Caitlin Cortes Notes Date Note Type Note Provider Name and Address Organization Details Recorded Time 07/10/2024 text/html right parotid massbecame aware of the mass about fall 2023no pain, +growth over timeno prior surgery in that area 05/27/2024 CT neck with contrast at [facility]25 mm lipoma adjacent to tail of right parotid SELINA VELASQUEZ MD [address] [address], [place], [address], [place] - [facility] 07/10/2024 14:52:27 OBGyn Episode No OBEpisode recorded.
== END 2024-12-10 12:11 | disposition home or self-care (01) ==
LOC: HO.ENCR 10:56
PROVIDERS: PCP Internal Medicine; Visit Provider Internal Medicine Endocrinology, Diabetes & Metabolism
DX: M81.0 Age-related osteoporosis without current pathological fracture (principal)
CPT/HCPCS: 99204

== ENCOUNTER 2025-01-14 09:42 | Outpatient (REF) | payer BC, SELFPAY | END 2025-01-14 09:43 | disposition home or self-care (01) | LOC: HO.10HDL 09:42 | PROVIDERS: Visit Provider Internal Medicine Endocrinology, Diabetes & Metabolism | DX: M81.0 Age-related osteoporosis without current pathological fracture (principal) | CPT/HCPCS: 36415; 84100; 86335 ==

== ENCOUNTER 2025-01-21 09:07 | Outpatient (REF) | payer BC, SELFPAY ==
[2025-01-21 10:01] LABS: Creatinine, mg/dL 45.69
[2025-01-21 10:34] LABS: Total Volume 24 Hour Urine 1925 mL
[2025-01-26 21:58] LABS: Calcium/Creatinine Ratio 143 mg/g creat (30-275); Creatinine 24Hr Urine 0.89 g/24 h (0.50-2.15)
[2025-02-04 14:53] LABS: NTXCreaRU 36 mg/dL (20-275)
== END 2025-01-21 09:08 | disposition home or self-care (01) ==
LOC: HO.LNP 09:07
PROVIDERS: Visit Provider Internal Medicine Endocrinology, Diabetes & Metabolism
DX: M81.0 Age-related osteoporosis without current pathological fracture (principal)
CPT/HCPCS: 82340; 82523; 82570

== ENCOUNTER 2025-03-30 15:43 | Outpatient (AMB) | payer BC, SELFPAY ==
--- NOTE | 2025-03-30 15:45 | A.OFFVIS_ITS ---
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 Has not started any localized estrogen due to her fear about cancer. She spoke with her monitoring specialist due to her osteoporosis and he recommended she start hormone replacement therapy to help with her bone loss. Currently sexually active. Denies any vaginal dryness or irritation. Attempting to eat a healthy diet with calcium and vitamin D and stays active with exercise. History of hysterectomy due to fibroids. Last Pap 2020. Last mammogram; 2024. Colonoscopy is UTD. Denies any family history of breast, ovarian or colon cancer. [facility] Medical History Family history of diabetes mellitus (DM) Elevated fasting glucose Colon polyps Chronic GERD Gastroesophageal reflux disease Surgical History History of esophagogastroduodenoscopy (EGD) Hx of endoscopy History of colonoscopy History of hysterectomy History of section Family History Father Hx of type 1 diabetes mellitus Hx of hiatal hernia Hx of congestive heart failure Mother HTN (hypertension) Maternal Grandmother Uterine cancer Social History Household Members: Spouse Housing: House Alcohol intake: current Alcohol intake frequency: does not drink Patient Tobacco Use Status: Former Tobacco user e-Cigarette/Vaping Use: Never Used Second Hand Smoke Exposure: Yes service: No Current occupational status: employed Sexual orientation: Straight/Heterosexual Gender identity: Female Cognitive needs: No Hearing needs: No Vision needs: Yes (Glasses) Female Reproductive History Menstrual Age of Menarche: 16 Menopause type: surgical Total pregnancies: 4 Full term: 4 Number of Living Children: 4 Date of last pap smear: 05/08/21 (neg pap and hpv) History of abnormal pap smear: Yes (40+yrs ago per pt) Date of Mammogram: 09/21/24 (Birad 1) Review of Systems Const All systems reviewed & are unremarkable except as noted in HPI and below Reports as per HPI Eyes Reports no additional complaints ENT Reports no additional complaints Card Reports no additional complaints Resp Reports no additional complaints GI Reports as per HPI and Reports no additional complaints Reports as per HPI Musc Reports no additional complaints Skin/Breast Reports as per HPI Neuro Reports no additional complaints Psych Reports no additional complaints Endo Reports no additional complaints George/Lymph Reports no additional complaints Aller/Immun Reports no additional complaints Physical Exam Vital Signs: Last Vital Signs BP 126/84 03/30/25 15:47 BMI result Body Mass Index 26.1 Const General: cooperative, healthy appearing, no acute distress, well developed and alert Orientation/consciousness: patient oriented x3 HEENT Head: Yes normal to inspection Eyes General: appearance normal, both eyes and all related structures Neck Neck: Yes normal visual inspection Thyroid: Thyroid normal Chest Chest palpation & inspection: normal inspection of the chest and other (no puckering, dimpling, peau de orange, retraction, discharge, masses) Breast/axilla inspection: normal inspection of the breasts Breast/axilla palpation: normal palpation of the breasts Resp Effort & Inspection: normal respiratory effort GI Inspection: Yes normal to inspection and Yes scar Palpation (GI): Soft to palpation Rectal Exam - Female: deferred General: Yes bladder normal to palpation External Female Exam: normal external appearance and normal appearance of the urethra Speculum Exam - Vagina: normal appearance of the vagina, normal palpation and normal vaginal discharge (Increased white) Speculum Exam - Cervix: Cervix absent (Vaginal cuff no lesions or nodules) Bimanual exam- vagina & uterus: normal bimanual exam, normal palpation, bladder normal to palpation and uterus absent Bimanual Exam- Adnexa, other: no masses Skin General skin exam: no rashes or lesions noted Rashes: no rashes Neuro General: patient oriented x3 Cognition (Neuro): normal cognition Extrem General: Yes normal to inspection Psych Attitude: cooperative Thought process: Normal thought process present Assessment & Plan Assessment & Plan (1) Women's annual routine gynecological examination: Code(s): Z01.419 - Encounter for gynecological examination (general) (routine) without abnormal findings Category: Medical Plan Discussed: Current recommendations for pap smears per ASCCP guidelines. Breast awareness, periodic self breast exams and yearly mammogram. Maintain a healthy lifestyle, well balanced diet including Calcium 1,200 mg and Vitamin D 600 IU daily, and routine exercise. Discussed role of vaginal estrogen instructions for use. Estrogen role with osteoporosis Patient verbalizes understanding and agrees to the plan of care. She was given opportunity to ask questions and all questions were answered to the best of my ability. RTO in 1 year for annual dredge captain exam. This note is constructed using voice recognition software. While every effort has been made to ensure accuracy, lead customer service representative errors may have been included. Coding Level of Care Code Est Pt Prev Care >65y(76699) Diagnoses Women's annual routine gynecological examination Z01.419
[2025-03-30 15:47] VITALS: BP 126/84; BMI 26.1
--- OUTSIDE RECORDS SUMMARY | 2025-03-30 20:42 | XMS_ITS | Data Portability ---
Author Organization [place] - [facility], Allergy Address [address] [address] Care Team Providers Care Records Management Manager Name Role Phone JIMENEZ GARZON Referring Provider VANESSA CORRAL Primary Care Provider Assessment Encounter Date Assessment Date Assessment LastModified by Organization Details LastModified Time 07/10/2024 07/10/2024 Patient has a lesion of the parotid salivary gland. We have discussed treatment options including observation as well as surgical intervention to remove the lesion. Surgery is performed under general anesthesia at either [facility] or [facility]. 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 Surgical removal was discussed but declined by the patient due to concerns about risks, including potential damage to the facial nerve. Observation was recommended as the preferred approach unless there are significant changes, such as rapid growth, pain, or facial weakness. The patient was advised to follow up if any of these changes occur. Lipomas were explained to typically grow slowly over many years, sometimes stabilizing in size or remaining unchanged. The patient was educated on the rare possibility of rapid changes or pain associated with lipomas and instructed to contact the clinic if these occur. [email or web address] Not available 01/14/2025 09:11:58 Plan of Treatment Reminders Order Date Submit Date Provider Last Modified By Organization Details Last Modified Time Details Appointments None recorded. Lab None recorded. Referral None recorded. Procedures None recorded. Surgeries parotidecto my (SURG) 2024 025 9 Not available 15:08:26 Imaging None recorded. Medication Orders None recorded. Patient TargetsNo targets recorded. Patient Instructions Encounter Date Encounter Id Patient Instructions Last Modified By Organization Details Last Modified Time 01/14/2025 [id number] - Monitor the lump for any significant changes, such as rapid growth, pain, or facial weakness. - Contact the clinic if any of these changes occur. [email or web address] Not available 01/14/2025 09:11:58 Please note: Parts of this encounter note have been generated by AI based on audio conversation. Patient consent was required prior to utilizing this technology. Content review was required prior to finalizing the note. [email or web address] Not available 01/14/2025 09:11:58 Reason for Referral None Reported. Results Created Date Observation Date Name Description Value Unit Range Abnormal Flag Note LastModifiedBy Organization Detail LastModifiedTime 07/10/19 25 05/27/2024 CT, neck, soft tissu e, w/ contr ast No observ ation record ed. [email or web address] Not Available 06/12 14:56:15 Result Notes None recorded. 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 Medical Equipment None Reported. Allergies No known drug allergies Medications Name Sig Start Date Stop Date Status Note LastModified by Organization Details LastModified Time pantoprazol e 20 mg tablet,melisa yed release TAKE ONE TABLET BY MOUTH EVERY DAY 07/10 completed Not Available Not Available Not Available famotidine 20 mg tablet TAKE ONE TABLET BY MOUTH EVERY DAY AT BEDTIME active Not Available Not Available No t Available lorazepam 1 mg tablet TAKE 1 TABLET BY MOUTH EVERY 6 TO 8 HOURS NEEDED FOR ANXIETY 07/10 completed Not Available Not Available Not Available estradiol 0.01% (0.1 mg/gram) vaginal cream APPLY ONE APPLICATO RFUL VAGINALLY DAILY NEEDED FOR VAGINAL DRYNESS FOR 14 DAYS active Not Available Not Available No t Available esomeprazol e magnesium 20 mg capsule,del ayed release Take 1 capsule every day by oral route. active Not Available Not Available No t Available cholecalcif brandin (vitamin D3) 50 mcg (2,000 unit) capsule TAKE 1 CAPSULE BY MOUTH EVERY DAY active Not Available Not Available No t Available Estroven Complete Menopause Relief 4 mg tablet Take by oral route. active Not Available Not Available No t Available BinaxNOW COVID-19 Ag Self Test kit TEST DIRECTED TODAY active Not Available Not Available No t Available Vitals Date Recorded Body height Body mass index (BMI) Body weight Provider Name and Address Organization Details Last Updated DateTime 07/10/2024 156.21 cm 26.6 kg/m2 31418.71 g Jenn Sesay [place] - [facility] 07/10/2024 14:23:05 Date Recorded Body height Body mass index (BMI) Body weight Provider Name and Address Organization Details Last Updated DateTime 01/14/2025 156.21 cm 26.6 kg/m2 07091.71 g Gretchen Cortes [place] - [facility] 01/14/2025 09:00:33 Social History None recorded. Functional Status None recorded. Mental Status None recorded. Family History Nothing Reported. Medical History No medical history recorded. Gynecological HistoryNo gynecological history recorded. 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 Patient would like to consider her options and may follow-up in as needed since she has decides not to pursue surgery Health Concerns Section Related Observation LastModified by Organization Detai ls LastModified Time None Recorded Concern Status LastModified by Organization Details LastModified Time None Recorded Advance Directives Directive None Recorded Payers Insurance Date Sequence Insurance Name Policy Number Policy Huang Covered Member ID Huang Member ID Guarantor Name 01/14/2025 1 [facility] [facility] [place] [place] [id number] Caitlin Cortes [id number] Caitlin Cortes Notes Date Note Type Note Provider Name and Address Organization Details Recorded Time 07/10/2024 text/html ROS as noted in the HPI right parotid massbecame aware of the mass about fall 2023no pain, +growth over timeno prior surgery in that area 05/27/2024 CT neck with contrast at [facility] mm lipoma adjacent to tail of right parotid SELINA VELASQUEZ MD [address], [address], [facility] - [facility] 07/10/2024 14:52:27 01/14/2025 text/html right parotid mass became aware of the mass about fall 2023 no pain, +growth over time no prior surgery in that area 05/27/2024 CT neck with contrast at [facility] 25 mm lipoma adjacent to tail of right parotid PV 07/10/24 Bola right tail parotid 25mm lipoma, pt defer on surgery Caitlin Cortes is a 64-year-old female who presents for evaluation of a lump on the side of her face. The lump has been present for an unspecified duration and does not cause pain or discomfort, but the patient is concerned about its appearance. The provider identified the lump as a lipoma, a fatty tumor, during a prior evaluation. SELINA VELASQUEZ MD [address] [place] [address], [place], [address], [facility] - [facility] 01/14/2025 09:13:08 OBGyn Episode No OBEpisode recorded.
== END 2025-03-31 08:01 | disposition home or self-care (01) ==
LOC: HO.HWS 15:43
PROVIDERS: PCP Internal Medicine; Visit Provider Advanced Practice Midwife
DX: Z01.419 Encounter for gynecological examination (general) (routine) without abnormal findings (principal)
CPT/HCPCS: 99396; 99459

== ENCOUNTER 2025-04-12 13:37 | Outpatient (AMB) | payer BC, SELFPAY ==
--- NOTE | 2025-04-12 13:49 | A.OFFVIS_ITS ---
Vital Signs 04/12/25 13:50 Height 5 ft 1.28 in Weight 136 lb 10.986 oz BMI 25.6 BP 126/72 Blood Pressure Location Lt brachial Position Sitting Pulse 79 Pulse Source Pulse Oximeter Pulse Oximetry (%) 97 Oxygen Delivery Method Room Air Intake Visit Reasons: f/u osteoporosis Intake Note: Patient present today for Osteoporosis follow up. Security Public Safety Officer Required: No Accompanied by: Self / Same As Patient Allergies oxycodone (Percocet) Allergy (Intermediate, Verified 04/12/25 13:50) nightmares alendronate sodium Adverse Reaction (Intermediate, Verified 04/12/25 13:50) pill induced esophagitis Medication List - Last Reconciled 04/12/25 by Lenny Arias MD cholecalciferol (vitamin D3) 50 mcg PO DAILY estradiol 0.01%(0.1mg/gram) (Estrace) 1 appful vaginal DAILY PRN 30 days famotidine (Pepcid) 20 mg PO BEDTIME lorazepam 1 mg PO Q6-8H PRN magnesium 250 mg PO BID HPI Comments Details: The patient is a 64-year-old female presenting with osteoporosis and menopausal symptoms. Osteoporosis was diagnosed in 2015, and the patient was treated with alendronate for five years, which she tolerated well despite gastrointestinal side effects such as esophagitis. She has not experienced any fractures and has a family history of osteoporosis on her father's side and osteopenia in her mother. The patient has been advised to maintain a calcium intake of 1200 mg daily, primarily through diet, supplemented with calcium citrate if necessary. Menopausal symptoms include hot flashes, which have persisted despite the absence of menstruation due to a hysterectomy performed in 1994, with ovaries preserved. The patient has considered using vaginal estrogen but has concerns about potential side effects. Thyroid dysfunction is suspected due to elevated TSH levels, although the patient has not been placed on medication as the T4 levels remain normal. There is no family history of thyroid issues, and the patient denies any significant symptoms related to thyroid dysfunction. The patient has a history of gastroesophageal reflux disease, previously managed with proton pump inhibitors, now taking Pepcid. She denies any current use of blood thinners or steroids. Prediabetes is a concern due to fasting blood glucose levels on the higher end of normal, though the patient is not currently on medication for this condition. She is seeing a ambulance driver and is advised to monitor her diet and maintain regular exercise to manage her weight and blood glucose levels. First diagnosed in 2015. Received treatment in the past with alendronate , from 2015 to 2020. Tolerated treatment but inflammed esophagus and stomach No history of pathologic fracture or ONJ. Has several servings of dietary calcium per day in the form of cheese, bok ella, broccoli . Not Takes Calcium supplement . Takes 2000 IU of Vitamin D daily. The patient consumes a diet that includes [place] cheese, broccoli, and cereal, with an emphasis on achieving a daily calcium intake of 1200 mg. She does not currently take calcium supplements but is advised to use calcium citr ate if dietary intake is insufficient. Took PPI, -anticoagulant, -antiepileptic or -glucocorticoid medication. Does weight bearing exercise 3 days per week in the form of weight bearing . - Weightbearing exercise: Engages in gym activities with a safety trainer once a week, aiming for two additional sessions weekly. Fracture history: No Height loss: Y [employer] history: Menarche at age 14- Hysterectomy 35 - keep ovaries still getting hot menses Denies history of Kidney stones: Has family history of Osteoporosis in mom and aunt but no hip fracture. UTD on dental cleanings and sees dentist every 6 months. No planned upcoming dental work or extractions. No tabacco use or heavy ETOH use DXA dated 07/30/23 : FINDINGS: LEFT FEMUR, NECK: Current: BMD 0.747 g/cm2, Z-score -0.8, T-score -2.1, osteopenia. Prior: BMD 0.638 g/cm2. Baseline: BMD 0.761 g/cm2. LEFT FEMUR, TOTAL: Current: BMD 0.768 g/cm2, Z-score -0.9, T-score -1.9, osteopenia, 12.4% increase from previous, 6.6% decrease from baseline (<5% change is not significant). Prior: BMD 0.683 g/cm2. Baseline: BMD 0.822 g/cm2. AP SPINE L1-L4: Current: BMD 0.868 g/cm2, Z-score -1.3, T-score -2.6, osteoporosis, 4.6% decrease from previous, 7.7% decrease from baseline (<5% change is not significant). Prior: BMD 0.910 g/cm2. Baseline: BMD 0.940 g/cm2. IDENTIFIED RISK FACTORS: Early menopause, hysterectomy, osteoporosis, secondary osteoporosis. HISTORY OF FRACTURE: None listed. MEDICATIONS: Vitamin D. MM/XR DEXA axial skeleton IMPRESSION: 1. DIAGNOSIS: Osteoporosis based on the lowest T-score value of -2.6 in the lumbar spine applying World Health Organization criteria. Labs:- Labs: TSH elevated, T4 normal, indicating possible subclinical hypothyroidism. - Labs: Fasting blood glucose levels on the higher end of normal, indicating prediabetes. Saw front office supervisor DESK MAKER who did not want to proceed with transdermal estrogen at this point [facility] Medical History Family history of diabetes mellitus (DM) Elevated fasting glucose Colon polyps Chronic GERD Gastroesophageal reflux disease Surgical History History of esophagogastroduodenoscopy (EGD) Hx of endoscopy History of colonoscopy History of hysterectomy History of section Family History Father Hx of type 1 diabetes mellitus Hx of hiatal hernia Hx of congestive heart failure Mother HTN (hypertension) Maternal Grandmother Uterine cancer Social History Household Members: Spouse Housing: House Alcohol intake: current Alcohol intake frequency: does not drink Patient Tobacco Use Status: Former Tobacco user e-Cigarette/Vaping Use: Never Used Second Hand Smoke Exposure: Yes service: No Current occupational status: employed Sexual orientation: Straight/Heterosexual Gender identity: Female Cognitive needs: No Hearing needs: No Vision needs: Yes (Glasses) Female Reproductive History Menstrual Age of Menarche: 16 Physical Exam Vital Signs: Last Vital Signs Pulse 79 04/12/25 13:50 BP 126/72 04/12/25 13:50 Pulse Ox 97 04/12/25 13:50 Oxygen Delivery Method Room Air 04/12/25 13:50 BMI result Body Mass Index 25.6 Assessment & Plan Assessment & Plan (1) Osteoporosis: Code(s): M81.0 - Age-related osteoporosis without current pathological fracture Category: Medical Qualifiers: Osteoporosis type: age-related Presence of current pathological fracture: without current pathological fracture Qualified Code(s): M81.0 - Age- related osteoporosis without current pathological fracture Plan: This is a 64-year-old female with a history of osteoporosis and negative secondary workup. She had previously taken alendronate for 5 years. Urine NTX is slightly elevated Plan is to .. We also discussed possible use of transdermal estrogen considering patient has a history of hysterectomy and continues to suffer from night sweats and perimenopausal symptoms. I will make a referral to a specialist in [place] namely Dr. Marylu Sanchez who specializes in estrogen r eplacement therapy perimenopausal woman. We will repeat DEXA bone density in 08/2025 Orders: Orders XR DEXA axial skeleton Today M81.0 - Age-related osteoporosis without current pathological fracture Referrals Endocrinology Referral M81.0 - Age-related osteoporosis without current pathological fracture Coding Level of Care Code Est Pt Level 3 (75741) Diagnoses Age-related osteoporosis without current pathological fracture M81.0 Osteoporosis type: age-related Presence of current pathological fracture: without current pathological fracture
[2025-04-12 13:50] VITALS: BP 126/72; PULSE 79; O2SAT 97; BMI 25.6
== END 2025-04-12 14:31 | disposition home or self-care (01) ==
LOC: HO.ENCR 13:38
PROVIDERS: PCP Internal Medicine; Visit Provider Internal Medicine Endocrinology, Diabetes & Metabolism
DX: M81.0 Age-related osteoporosis without current pathological fracture (principal)
CPT/HCPCS: 99213

== ENCOUNTER 2025-05-26 09:15 | Outpatient (AMB) | payer BC, SELFPAY ==
[2025-05-26 09:21] VITALS: BP 118/68; PULSE 75; RESP 18; O2SAT 99; BMI 25.8
--- NOTE | 2025-05-26 09:21 | A.OFFPC_ITS ---
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: No Accompanied by: Self / Same As Patient Allergies oxycodone (Percocet) Allergy (Intermediate, Verified 05/26/25 10:03) nightmares alendronate sodium Adverse Reaction (Intermediate, Verified 05/26/25 10:03) pill induced esophagitis Medication List - Last Reconciled 05/26/25 by Cleo Fine MD cholecalciferol (vitamin D3) 50 mcg PO DAILY estradiol 0.01%(0.1mg/gram) (Estrace) 1 appful vaginal DAILY PRN 30 days famotidine (Pepcid) 20 mg PO BEDTIME lorazepam 1 mg PO Q6-8H PRN magnesium 250 mg PO BID Tobacco use date assessed: 05/26/25 Dental Screening Dental Screen Date: 05/26/25 Did you have a dental visit in the last 12 months?: Yes Did you have a dental problem in the last 6 months where you did not have access to dental care?: No Was dental information given to patient?: Patient has dentist HPI HPI Comments History of Present Illness Details The patient is a 64-year-old female presenting for an annual physical examination. Her health screenings include a colonoscopy in 2021 and her next bone density scan is scheduled for July 2023, as the last one showed osteopo rosis. Her mammogram was in September 2024 and she is under the care of an youth care professional for her bone health. The patient's allergies include nightmares from oxycodone and pill-induced esophagitis from alendronate. Current medications include vitamin D, vaginal estradiol, and magnesium. She has lorazepam for situational use during flights and has not used her prescribed Pepcid. There is conflicting advice regarding hormone replacement therapy (HRT); her youth care professional recommends it for bone health, while her industrial aerial installer advised against it due to her age, citing more risks than benefits. She reports hypersensitivity of vaginal tissue rather than dryness, which she has been hesitant to treat with the prescribed estradiol cream. Her surgical history includes 4 sections and a hysterectomy. The patient's father in 2021 from congestive heart failure and also had diabetes and dementia. Her mother is alive with hypertension. She reports insomnia, for which she has tried melatonin without success, but finds marijuana and CBN gummies helpful. She has a history of impaired glucose tolerance, with a past reading of 115 that improved to 101. She and her are focused on a healthier diet following his diagnosis of atrial fibrillation. - Screenings: The patient's last colonos copy was in 2021. - Her last mammogram was reportedly in A pril 2024. - She has a bone density scan scheduled for July 2023 to monitor her osteoporosis. - Vaccinations: She is up to date, jairo rose received a tetanus vaccine within the last 10 years and a flu vaccine last month. - Labs: An A1c was ordered to monitor he r history of impaired glucose tolerance. - Lifestyle: The patient is actively try ing to eat a healthier diet, motivated by her 's diagnosis of atrial fibrillation. - Her exercise has been inconsistent, bu t she plans to get a gym membership. [facility] Medical History Family history of diabetes mellitus (DM) Elevated fasting glucose Colon polyps Chronic GERD Gastroesophageal reflux disease Surgical History History of esophagogastroduodenoscopy (EGD) Hx of endoscopy History of colonoscopy History of hysterectomy History of section Family History (Updated 05/26/25 @ 10:11 by Cleo Fine MD) Father Hx of type 1 diabetes mellitus Hx of hiatal hernia Hx of congestive heart failure Mother HTN (hypertension) Maternal Grandmother Uterine cancer Social History (Updated 05/26/25 @ 10:12 by Cleo Fine MD) Household Members: Spouse Housing: House Alcohol intake: former Patient Tobacco Use Status: Former Tobacco user e-Cigarette/Vaping Use: Never Used Second Hand Smoke Exposure: Yes service: No Current occupational status: employed Sexual orientation: Straight/Heterosexual Gender identity: Female Cognitive needs: No Hearing needs: No Vision needs: Yes (Glasses) Female Reproductive History Menstrual Age of Menarche: 16 Questionnaire Thrive Questionnaire Date Thrive assessed: 05/26/25 I am a: Patient What is your living situation today?: I have a steady place to live Within the past 12 months, did the food you bought not last and you didn't have the money to get more?: Never true Within the past 12 months, did you worry whether your food would run out before you got money to buy more?: Never true Do you have trouble paying for medicines?: No Do you have trouble getting transportation to medical appointments?: No Do you have trouble paying your heating and electricity bill?: No Do you have trouble taking care of your child, family member or friend?: No Do you have trouble with day-to-day activities such as bathing, preparing meals, shopping, managing finances, etc.?: No Are you currently unemployed and looking for a job?: No Are you interested in more education?: No Please select the resources that you would like help with: None Currently or been in a relationship where the following occur: No concerns reported THRIVE Score: 0 WILLIAM-7 AMB Questionnaire WILLIAM-7 Date WILLIAM - 7 assessed: 11/16/24 Source: Developed by Drs. Lenny Gonzalez, Pratima Campa, Billy Coleman and colleagues, with an educational cayden from [employer]. Review of Systems Const All systems reviewed & are unremarkable except as noted in HPI and below Card Denies chest pain at rest, Denies chest pain with activity, Denies edema, Denies irregular heart rhythm, Denies claudication, Denies dyspnea, Denies dyspnea on exertion, Denies orthopnea, Denies paroxysmal nocturnal dyspnea and Denies slow heart rate Resp Denies cough, Denies dyspnea and Denies dyspnea on exertion Physical exam (Primary Care) Vital Signs: Last Vital Signs Pulse 75 05/26/25 09:21 Resp 18 05/26/25 09:21 BP 118/68 05/26/25 09:21 Pulse Ox 99 05/26/25 09:21 Oxygen Delivery Method Room Air 05/26/25 09:21 BMI result Body Mass Index 25.8 Tobacco/Smoking Status: Tobacco use Status Tobacco use date assessed 05/26/25 05/26/25 09:28 Patient Tobacco Use Status Former Tobacco user 05/26/25 10:12 e-Cigarette/Vaping Use Never Used 05/26/25 10:12 Thrive Assessment: Date of Thrive Assessment Date Thrive assessed 05/26/25 05/26/25 09:28 Currently or been in a relationship where the following occur: No concerns reported [facility] Head: Yes normal to inspection, Yes normocephalic and Yes atraumatic Ears: external ears normal Eyes General: appearance normal, both eyes and all related structures Eyelids: Yes eyelids normal Conjunctivae: conjunctivae normal Neck Neck: Yes normal visual inspection and Yes supple Resp Effort & Inspection: normal respiratory effort Auscultation: clear to auscultation bilaterally Cardio Jugular venous distension: no JVD Rate: regular rate Rhythm: regular rhythm Heart sounds: S1 normal heart sound present and S2 normal heart sound present GI Inspection: Yes normal to inspection Palpation (GI): Soft to palpation and nontender Auscultation: normal bowel sounds Skin General skin exam: no rashes or lesions noted Neuro General: no focal motor deficits Extrem General: Yes full ROM Psych Appearance: grossly normal Coding Level of Care Code Est Pt Prev Care 40-64y(42952) Diagnoses Physical exam Z00.00 Time Spent (min) 30 Assessment & Plan Assessment & Plan (1) Physical exam: Code(s): Z00.00 - Encounter for general adult medical examination without abnormal findings Category: Medical Plan Plan 1. Physical exam Repeat in a year. Continue yearly mammogram. DEXA scan every 2 years. The patient is following up for an annual physical exam. Health maintenance status was reviewed, and she is up to date on tetanus and flu vaccinations. Lab work, including an A1c, will be drawn today, and results will be mailed to the patient. 2. Osteoporosis The patient has a diagnosis of osteoporosis and is being followed by an youth care professional. She has a history of intolerance to alendronate. She will continue to follow up with endocrinology and has a bone density scan scheduled for July 2023. 3. Impaired Glucose Tolerance The patient has a history of prediabetes with past glucose levels as high as 115, which have since improved to 101. An A1c will be checked to assess glycemic control. The patient is motivated and making dietary modifications. Orders: Orders Vitamin D 25-OH Total Today E55.9 - Vitamin D deficiency, unspecified Lipid Panel Today E78.5 - Hyperlipidemia, unspecified Comprehensive [place]. Panel Fast Today R73.01 - Impaired fasting glucose Hemoglobin A1c Today E11.9 - Type 2 diabetes mellitus without complications
== END 2025-05-26 10:24 | disposition home or self-care (01) ==
LOC: HO.HMCH 09:16
PROVIDERS: PCP Internal Medicine; Visit Provider Internal Medicine
DX: Z00.00 Encounter for general adult medical examination without abnormal findings (principal)

== ENCOUNTER 2025-06-01 09:07 | Outpatient (REF) | payer BC, SELFPAY ==
--- OUTSIDE RECORDS SUMMARY | 2025-06-01 09:43 | XMS_ITS | Data Portability ---
Author Organization [place] - [facility], Allergy Address [address] [address] Care Team Providers Care Ceramic Mold Designer Name Role Phone JIMENEZ GARZON Referring Provider [phone] VANESSA CORRAL Primary Care Provider [phone] Assessment Encounter Date Assessment Date Assessment LastModified by Organization Details LastModified Time 07/10/2024 07/10/2024 Patient has a lesion of the parotid salivary gland. We have discussed treatment options including observation as well as surgical intervention to remove the lesion. Surgery is performed under general anesthesia at either [facility] or [facility]. The surgery is typically booked for approximately [...] recorded. Surgeries parotidecto my (SURG) 2024 025 [email or web address] [id number] Not available 15:08:26 Imaging None recorded. Medication Orders None recorded. Patient TargetsNo targets recorded. 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 Medical Equipment [...] Updated DateTime 07/10/2024 156.21 cm 26.6 kg/m2 13914.71 g Jenn Sesay [place] - [facility] 07/10/2024 14:23:05 Date Recorded Body height Body mass index (BMI) Body weight Provider Name and Address Organization Details Last Updated DateTime 01/14/2025 156.21 cm 26.6 kg/m2 17746.71 g Gretchen Cortes [place] - [facility] 01/14/2025 09:00:33 Social History None recorded. Functional Status None recorded. Mental Status None recorded. Family History Nothing Reported. Medical History No medical history recorded. Gynecological HistoryNo gynecological history recorded. 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 of tail [...] Huang Member ID Guarantor Name 01/14/2025 1 [facility] [id number] Caitlin Cortes [id number] 78 Caitlin Cortes Notes Date Note Type Note Provider Name and Address Organization Details Recorded Time 07/10/2024 text/html ROS as noted in the HPI right parotid massbecame aware of the mass about fall 2023no pain, +growth over timeno prior surgery in that area 05/27/2024 CT neck with contrast at [facility] mm lipoma adjacent to tail of right parotid SELINA VELASQUEZ MD [address], [address], [facility] - [facility] 07/10/2024 14:52:27 01/14/2025 text/html right parotid mass [...] during a prior evaluation. SELINA VELASQUEZ MD [address] [place] [address], [place], [address], [facility] - [facility] 01/14/2025 09:13:08 OBGyn Episode No OBEpisode recorded.
[2025-06-01 10:36] LABS: Alanine Aminotransferase 28 U/L (0-31); Albumin Level 4.6 g/dL (3.5-5.0); Alkaline Phosphatase 100 U/L (39-117); Anion Gap 11 (12-20); Aspartate Amino Transferase 23 U/L (5-31); Blood Urea Nitrogen 12 mg/dL (9-16); Calcium 9.3 mg/dL (8.4-10.2); Carbon Dioxide 26 mmol/L (22-29); Chloride 109 mmol/L (96-108); Cholesterol 166 mg/dL (<200); Estimated Glomerular Filt Rate > 60; HDL Cholesterol 45 mg/dL (>40); Potassium 4.4 mmol/L (3.3-5.1); Sodium 142 mmol/L (135-145); Total Protein 7.2 g/dL (6.5-8.0); Triglycerides 113 mg/dL (<150)
== END 2025-06-01 09:08 | disposition home or self-care (01) ==
LOC: HO.LAB 09:07
PROVIDERS: PCP Internal Medicine; Visit Provider Internal Medicine
DX: E11.9 Type 2 diabetes mellitus without complications (principal); E55.9 Vitamin D deficiency, unspecified; E78.5 Hyperlipidemia, unspecified
CPT/HCPCS: 36415; 80053; 80061; 82306; 83036